=== PATIENT | female | born 1950 | race Caucasian/White ===

== ENCOUNTER 2018-07-16 12:14 | Outpatient (CLI) | payer MEDICARE ==
[2018-07-16 13:18] LABS: #Basophils 0.1 thou/uL (0.0-0.2); #Eosinphils 0.2 thou/uL (0.0-0.7); #Lymphocytes 3.8 thou/uL (1.20-3.40); #Monocytes 0.6 thou/uL (0.11-0.59); #Neutrophils 4.1 thou/uL (1.40-6.50); %Basophils 0.8 % (0.0-1.0); %Eosinophils 2.3 % (0.0-10.0); %Lymphocytes 43.5 % (21.0-51.0); %Monocytes 6.6 % (0.0-10.0); %Neutrophils 46.9 % (42.0-75.0); Hemoglobin 13.9 g/dL (12.0-16.0); Mean Corpuscular Hemoglobin 26.6 pg (27.0-31.0); Mean Corpuscular Volume 85.8 fL (78.0-98.0); Mean Platelet Volume 6.5 fL (7.4-10.4); Platelet Count 363 thou/uL (130-400); RBC Distribution Width 15.5 % (11.5-14.5); Red Blood Cell (RBC) Count 5.22 mill/uL (4.20-5.40); White Blood Cell (WBC) Count 8.7 thou/uL (4.8-10.8)
[2018-07-17 13:54] LABS: Ref Lab Test Ordered C TELOPEPTIDE TEST; Reference Lab Name LABCORP
== END 2018-07-16 12:15 | disposition home or self-care (01) ==
LOC: MADLAB 12:14
PROVIDERS: ATTEND Internal Medicine Rheumatology
DX: M80.00XD Age-related osteoporosis with current pathological fracture, unspecified site, subsequent encounter for fracture with routine healing (principal); M47.819 Spondylosis without myelopathy or radiculopathy, site unspecified
CPT/HCPCS: 82306; 83970; 85025; 85652

== ENCOUNTER 2019-02-26 20:00 | Emergency (ER) | payer MEDICARE ==
--- NOTE | 2019-02-26 20:28 | RAD ---
FXR Hip Rt 2-3 View: 02/26/2019 8:07 PM CLINICAL INDICATION: Posttraumatic pain COMPARISON: None. FINDINGS: Fracture:Mildly displaced subcapital proximal right femoral fracture is present. The femoral head rem ains seated within the acetabulum Arthropathy:Moderate arthropathy. Incidental findings:Prominent retained fecal material in the colon IMPRESSION: 1. Acute subcapital proximal right femoral fracture. Orthopedic consultation is warranted.
[2019-02-26] MEDS ORDERED: Sodium Chloride 0.9% 500 ML ONE (21:00)
[2019-02-26] MEDS ORDERED: Morphine 4 MG/ML VIAL ONE (21:00)
[2019-02-26 21:29] LABS: #Basophils 0.1 thou/uL (0.0-0.2); #Lymphocytes 1.8 thou/uL (1.20-3.40); #Monocytes 0.5 thou/uL (0.11-0.59); %Basophils 0.6 % (0.0-1.0); %Eosinophils 0.4 % (0.0-10.0); %Lymphocytes 15.6 % (21.0-51.0); %Monocytes 4.4 % (0.0-10.0); %Neutrophils 79.1 % (42.0-75.0); Mean Corpuscular HGB CONC 32.6 g/dL (32.0-36.0); Mean Corpuscular Hemoglobin 30.5 pg (27.0-31.0); Mean Corpuscular Volume 93.4 fL (78.0-98.0); Mean Platelet Volume 7.8 fL (7.4-10.4); Platelet Count 214 thou/uL (130-400); RBC Distribution Width 14.9 % (11.5-14.5); Red Blood Cell (RBC) Count 4.58 mill/uL (4.20-5.40); White Blood Cell (WBC) Count 11.3 thou/uL (4.8-10.8)
== END 2019-02-26 21:19 | disposition short-term general hospital (02) ==
LOC: MADERS 20:00
DX: S72.011A Unspecified intracapsular fracture of right femur, initial encounter for closed fracture (principal); E03.9 Hypothyroidism, unspecified; K21.9 Gastro-esophageal reflux disease without esophagitis; E78.5 Hyperlipidemia, unspecified; I10 Essential (primary) hypertension; M81.0 Age-related osteoporosis without current pathological fracture; F32.9 Major depressive disorder, single episode, unspecified; F17.210 Nicotine dependence, cigarettes, uncomplicated; Z79.899 Other long term (current) drug therapy; Z79.82 Long term (current) use of aspirin; W19.XXXA Unspecified fall, initial encounter
CPT/HCPCS: 85025; 96374; J2270; J7050

== ENCOUNTER 2019-03-02 11:14 | Inpatient (IN) | payer MEDICARE ==
[2019-03-02 12:37] VITALS: BMI 17.6
[2019-03-02] MEDS ORDERED: Acetaminophen 325 MG TAB PO PRN (13:43)
[2019-03-02] MEDS ORDERED: Ondansetron ODT 4 MG TAB PO PRN (13:45)
[2019-03-02] MEDS ORDERED: CLOBETASOL PROPIONATE TOP PRN (14:45)
[2019-03-02] MEDS: Gabapentin 300 MG CAP PO SCH ×2 (15:05→20:50)
[2019-03-02] MEDS: HYDROcodone/Acetaminophen 7.5/325 mg Tablet PO PRN (20:48)
[2019-03-02] MEDS: Amitriptyline HCl 25 MG TAB PO SCH (20:49)
[2019-03-02] MEDS: Aspirin 81 mg Enteric Coated Tablet PO SCH (20:49)
[2019-03-02] MEDS: guaiFENesin ER 600 MG TAB PO SCH (20:49)
[2019-03-02] MEDS: Colchicine 0.6 MG TAB PO SCH (20:50)
[2019-03-02] MEDS: Atorvastatin Calcium 10 MG TAB PO SCH (20:50)
[2019-03-02] MEDS: CHOLECALCIFEROL PO SCH (20:51)
[2019-03-02] MEDS: Teriparatide [Forteo] 20 MCG SC SCH (20:51)
[2019-03-03] MEDS: Levothyroxine Sodium 50 MCG TAB PO SCH (05:16)
[2019-03-03 05:29] LABS: #Neutrophils 3.1 thou/uL (1.40-6.50); %Eosinophils 1.2 % (0.0-10.0); %Lymphocytes 33.3 % (21.0-51.0); %Monocytes 6.6 % (0.0-10.0); Hemoglobin 9.8 g/dL (12.0-16.0); Mean Corpuscular HGB CONC 33.6 g/dL (32.0-36.0); Mean Corpuscular Hemoglobin 30.7 pg (27.0-31.0); Mean Corpuscular Volume 91.3 fL (78.0-98.0); Mean Platelet Volume 7.4 fL (7.4-10.4); Platelet Count 166 thou/uL (130-400); RBC Distribution Width 14.9 % (11.5-14.5); White Blood Cell (WBC) Count 5.4 thou/uL (4.8-10.8)
[2019-03-03 05:30] LABS: #Basophils 0.1 thou/uL (0.0-0.2); #Eosinphils 0.1 thou/uL (0.0-0.7); #Lymphocytes 1.8 thou/uL (1.20-3.40); #Monocytes 0.4 thou/uL (0.11-0.59)
[2019-03-03 05:33] LABS: ALT (SGPT) 25 U/L (8-55); AST (SGOT) 14 U/L (5-34); Albumin 2.9 g/dL (3.4-4.8); Alkaline Phosphatase 115 U/L (40-150); Anion Gap 14 mmol/L (10-20); BUN (Urea Nitrogen) 9 mg/dL (9.8-20.1); Bilirubin, Total 0.5 mg/dL (0.2-1.2); Calc. Creatinine Clearance 73 mL/min (70-130); Calcium 8.3 mg/dL (7.8-10.44); Carbon Dioxide 30 mmol/L (23-31); Chloride 100 mmol/L (98-107); Estimated GFR-MDRD Greater than 90; Glucose 108 mg/dL (80-115); Platelet Morphology Comment Appears Adequate; Potassium 3.9 mmol/L (3.5-5.1); Protein, Total 4.9 g/dL (6.0-8.3); RBC Morphology Normal; Sodium 140 mmol/L (136-145)
[2019-03-03] MEDS: Calcium Carbonate 500 MG ChewTAB PO PRN ×3 (06:26→19:14)
--- NOTE | 2019-03-03 07:35 | HP ---
CHIEF COMPLAINT: Weakness. HISTORY OF PRESENT ILLNESS: The patient is a very pleasant 68-year-old female, who was living with her good friend and her . She was independent of all her ADLs. She has a history of COPD, cigarette abuse, and osteoporosis with a history of multiple thoracolumbar compression fractures. The patient also has hypertension. The patient had a fall on 02/27/2019. She said she was leaning over to get something out of her purse and fell over onto her right hip. She had immediate pain and could not get up. She was taken to the emergency room and was found to have a right femoral neck fracture that was closed. She was taken to [facility] and hospitalized and there underwent a right hip arthoplasty on 02/27/2029 by orthopedic surgeon, Dr. Bharathi Weiss. The patient postop course has been unremarkable other than she has had a drop in her hemoglobin from an admission hemoglobin of 14.5 to 9.8 and then this rebounded to 10.6, this was from the fracture and surgery. She has had no signs of any acute blood loss other than from that fracture. She has done very well postop and has been managing her pain with hydrocodone, which works very well for her. She has been up walking with a walker and still needed assistance with transfers and ADLs. She was transferred to [facility] to [facility] for purpose of physical therapy and occupational therapy in an effort to improve her functional capabilities. The patient was seen soon after her arrival and she was able to give me a good history of what has happened to her and her past historical events. Right now, she is feeling good. She said she has chronic back pain from multiple compression fractures and at home manages this with hydrocodone/acetaminophen 7.5/325 mg one or two a day. She said this has also helped manage her hip. PAST MEDICAL HISTORY: COPD; osteoporosis; history of compression fractures of T11-T12, L3, L4, and L5. She has osteoporosis and the patient is under the care of a shipping and receiving and manages this with Forteo that she takes nightly and vitamin D3. She has hypertension and insomnia, for which she has been on amitriptyline for a long time. Hypothyroidism and chronic diarrhea, for which she is on a medication that has managed this very well, it was recently given to her by the folding machine feeder. She was hospitalized on September 26, 2018, for acute colitis and was seen by folding machine feeder, Dr. Daniels, who follows up with her as an outpatient. On 06/28/2018, she had an echocardiogram that showed a 50% to 55% ejection fraction, moderate aortic insufficiency, and diastolic dysfunction. Carotid duplex scan showed mild plaquing with no significant stenosis. The patient has a long history of smoking, but has been trying to stop. Lichen planus. PAST SURGICAL HISTORY: Right total hip arthroplasty on 02/27/2019, cholecystectomy in 1977, and EVY in 1981. MEDICATIONS: Present medicines; 1. Lisinopril 5 mg daily. 2. Omeprazole 40 mg daily. 3. Pravastatin 40 mg daily. 4. Gabapentin 300 mg one t.i.d. 5. Amitriptyline 50 mg at bedtime. 6. Aspirin 81 mg daily. 7. Colcrys (colchicine) 0.6 mg one b.i.d. 8. Levothyroxine 50 mcg daily. 9. Hydrocodone/acetaminophen 7.5/325 one twice a day as needed. 10. Vitamin D3 drops four drops at night. 11. Diclofenac gel 1% as needed. 12. Forteo 20 mg subcu daily. 13. Clobetasol propionate 0.05% applied to the skin as needed. 14. Zofran oral disintegrating tablets 4 mg sublingual p.r.n. ALLERGIES: SULFA DRUGS AND PENICILLIN. REVIEW OF SYSTEMS: GENERAL: The patient says she has not had any fever. She has had no recent weight gain or loss. HEAD AND NECK: No complaints. PULMONARY: No shortness of breath. CARDIOVASCULAR: No chest pain. GI: The patient has a history of diarrhea that recently has stopped after she saw a folding machine feeder and started on a medication for this. : No complaints. ADLS: Prior to her fall, she was independent of all her ADLs. HABITS: The patient was smoking about a pack of cigarettes a day for many years. She has been cutting down, and since this hospitalization, she has not been smoking. Alcohol, none. CODE STATUS: In her record, it shows she is a DNR. PHYSICAL EXAMINATION: GENERAL: Very pleasant 68-year-old asthenic-build female, who is sitting up in a chair. She is talkative and appears very comfortable and in no distress. VITAL SIGNS: Her vital signs shows a temperature 98.6, pulse 104, respirations 16, O2 saturation 94% on room air, blood pressure 114/71, and weight 106. HEENT: Head, normocephalic and atraumatic. Eyes; pupils are equal, round, and reactive. Sclerae nonicteric. Ears, TMs are clear. Nose normal. Mouth and throat, normal. Neck, carotids are equal and strong. No bruits. LUNGS: Clear. HEART: Regular rate. No murmurs. ABDOMEN: Soft and nontender. EXTREMITIES: Right hip, the incision along the lateral right hip has been closed with sonny and there is no drainage from this and no redness. Lower extremities, no edema. NEUROLOGIC: The patient is alert and oriented x3 with some generalized weakness, but nonfocal except some increase on the right leg secondary to fracture and surgery. SKIN: No rash. There is abrasion over the right knee that occurred with her fall on 02/27/2019. IMPRESSION: 1. Generalized weakness and gait abnormality. a. Secondary to a fall and fracture of her right hip. 2. Right femoral neck fracture, closed. a. Occurred from a fall when she got overbalanced on 02/27/2019. b. Status post right hip arthroplasty on 02/27/[address] Weiss. c. Doing very well on her third postop day. 3. Chronic obstructive pulmonary disease. 4. Hypertension. 5. Osteoporosis. a. History of compression fractures of T11-12 and L3, L4, and L5. b. On vitamin D3 and Forteo. c. Under the care of shipping and receiving, Dr. Garland. 6. Cigarette abuse. a. She has been off cigarettes since her hospitalization on 02/27. 7. Hypothyroidism. 8. Diarrhea, controlled. 9. Lichen planus, controlled. 10. Gastroesophageal reflux disease. PLAN: The patient has been admitted to [facility] for purpose of physical therapy and occupational therapy. This will be in an effort to improve and stabilize her gait and allow her to resume independence of her ADL. We will continue her routine medication. Job ID: [id number]
[2019-03-03] MEDS: guaiFENesin ER 600 MG TAB PO SCH ×2 (08:30→20:31)
[2019-03-03] MEDS: Aspirin 81 mg Enteric Coated Tablet PO SCH ×2 (08:30→20:30)
[2019-03-03] MEDS: Gabapentin 300 MG CAP PO SCH ×3 (08:30→20:30)
[2019-03-03] MEDS: Colchicine 0.6 MG TAB PO SCH ×2 (08:30→20:30)
[2019-03-03] MEDS: Lisinopril 5 MG TAB PO SCH (08:30)
[2019-03-03] MEDS: Nicotine 21 MG PATCH TD SCH (08:31)
[2019-03-03] MEDS: HYDROcodone/Acetaminophen 7.5/325 mg Tablet PO PRN ×2 (10:27→21:31)
[2019-03-03] MEDS: Atorvastatin Calcium 10 MG TAB PO SCH (20:31)
[2019-03-03] MEDS: Amitriptyline HCl 25 MG TAB PO SCH (20:31)
[2019-03-03] MEDS: DICYCLOMINE PO SCH (20:32)
[2019-03-03] MEDS: Teriparatide [Forteo] 20 MCG SC SCH (20:33)
[2019-03-03] MEDS: OMEPRAZOLE PO SCH (20:34)
[2019-03-03] MEDS: CHOLECALCIFEROL PO SCH (20:34)
[2019-03-04] MEDS: Levothyroxine Sodium 50 MCG TAB PO SCH (05:45)
--- NOTE | 2019-03-04 08:11 | PRG ---
DATE OF SERVICE: 03/03/2019 SUBJECTIVE: The patient said she had some trouble with some indigestion last night, but it was relieved with some Mylanta. At home, she takes omeprazole 40 mg, she is getting this from home and will take this. She also takes for her diarrhea that has worked wonderful. Bentyl 10 mg is prescribed 4 times a day, but she says twice today works wonderful and controls the diarrhea. If she takes it anymore often, then she gets constipated. OBJECTIVE: GENERAL: The patient is alert, looks very comfortable, in no distress. VITAL SIGNS: Her vital signs show a temperature 97.5, pulse 89, respirations 16 , O2 saturation 99% on room air, and blood pressure 138/71. LUNGS: Clear. HEART: Regular rate. LOWER EXTREMITIES: No edema. Incision is healing well. LABORATORY DATA: H and H 9 and 29.2 and white cell count 5400 with 58% segs, 33 % lymphocytes, and platelet count of 166,000. Sodium 140, potassium 3.9, BUN 9, creatinine 0.5, GFR greater than 90, and albumin 2.9. ASSESSMENT: 1. Generalized weakness and gait abnormality. a. Secondary to a fall and fracture of her right hip. b. Improved as of 03/03/2019. 2. Right femoral neck fracture, closed. a. Occurred from a fall when she got overbalanced on 02/27/2019. b. Status post right hip arthroplasty on 02/27/[address] Weiss. c. Improved on her fourth postop day as of 03/03/2019. Doing very well on her third postop day. 3. Chronic obstructive pulmonary disease. 4. Hypertension. 5. Osteoporosis. a. History of compression fractures of T11-12 and L3, L4, and L5. b. On vitamin D3 and Forteo. c. Under the care of line out worker, Dr. Garland. 6. Cigarette abuse. a. She has been off cigarettes since her hospitalization on 02/27. 7. Hypothyroidism. 8. Chronic diarrhea. a. Controlled with Bentyl 10 mg b.i.d. 9. Lichen planus, controlled. 10. Gastroesophageal reflux disease. 11. Anemia secondary to right hip fracture and surgical repair. Admission hemoglobin 14.5 on 02/26 and dropped to 9.8 on 02/28/2019. b. Stable at 9.8 as of 03/03/2019. PLAN: The patient has been restarted on her omeprazole 40 mg that she takes at home that controls her reflux and she has Tums for p.r.n. use. Started back on her Bentyl for her diarrhea. Physical Therapy is working with her. Continue present care. Continue PT, OT. Job ID: [id number] MTDD
[2019-03-04] MEDS: Nicotine 21 MG PATCH TD SCH (08:30)
[2019-03-04] MEDS: Lisinopril 5 MG TAB PO SCH (08:30)
[2019-03-04] MEDS: Colchicine 0.6 MG TAB PO SCH ×2 (08:30→20:40)
[2019-03-04] MEDS: guaiFENesin ER 600 MG TAB PO SCH ×2 (08:30→20:39)
[2019-03-04] MEDS: Aspirin 81 mg Enteric Coated Tablet PO SCH ×2 (08:30→20:40)
[2019-03-04] MEDS: Gabapentin 300 MG CAP PO SCH ×3 (08:30→20:40)
[2019-03-04] MEDS: DICYCLOMINE PO SCH ×2 (08:40→20:38)
[2019-03-04] MEDS: OMEPRAZOLE PO SCH (08:41)
[2019-03-04] MEDS: HYDROcodone/Acetaminophen 7.5/325 mg Tablet PO PRN ×2 (08:50→20:37)
--- NOTE | 2019-03-04 10:06 | PRG ---
DATE OF SERVICE: 03/04/2019 SUBJECTIVE: The patient says she is doing well. She said that she was little more sore yesterday. She thinks she may have worked a little bit too much with therapy. She did sleep good. She said she had some indigestion during the day, but this is much better. At home, she takes her omeprazole in the morning, not at night. This will be switched. Overall, she thinks she is doing good. OBJECTIVE: GENERAL: The patient is sitting up on the side of the bed. She is alert. Appears very comfortable, in no distress. VITAL SIGNS: Her temperature is 97.7, pulse 84, respirations 16, O2 saturation 90% on room air, and blood pressure 132/73. LUNGS: Moderate breath sounds are clear. HEART: Regular rate. EXTREMITIES: No edema. ASSESSMENT: 1. Generalized weakness and gait abnormality. a. Secondary to a fall and fracture of her right hip. b. Improved as of 03/04/2019. 2. Right femoral neck fracture, closed. a. Occurred from a fall when she got overbalanced on 02/27/2019. b. Status post right hip arthroplasty on 02/27/[address] Weiss. c. Continued progress on her fifth postop day as of 03/04/2019. 3. Chronic obstructive pulmonary disease. 4. Hypertension. 5. Osteoporosis. a. History of compression fractures of T11-12 and L3, L4, and L5. b. On vitamin D3 and Forteo. c. Under the care of waiter/waitress club, Dr. Garland. 6. Cigarette abuse. a. She has been off cigarettes since her hospitalization on 02/27. 7. Hypothyroidism. 8. Chronic diarrhea. a. Controlled with Bentyl. 9. Lichen planus, controlled. 10. Gastroesophageal reflux disease. PLAN: Continue present care. We will switch the omeprazole 40 mg in the morning. May use some Tums as needed. Continue PT and OT. Job ID: [id number] [facility]
[2019-03-04] MEDS: CHOLECALCIFEROL PO SCH (20:39)
[2019-03-04] MEDS: Amitriptyline HCl 25 MG TAB PO SCH (20:40)
[2019-03-04] MEDS: Atorvastatin Calcium 10 MG TAB PO SCH (20:40)
[2019-03-04] MEDS: Teriparatide [Forteo] 20 MCG SC SCH (20:41)
[2019-03-04] MEDS: Calcium Carbonate 500 MG ChewTAB PO PRN (21:32)
[2019-03-05] MEDS: Levothyroxine Sodium 50 MCG TAB PO SCH (06:10)
[2019-03-05] MEDS: HYDROcodone/Acetaminophen 7.5/325 mg Tablet PO PRN ×2 (07:41→20:14)
[2019-03-05] MEDS: Aspirin 81 mg Enteric Coated Tablet PO SCH ×2 (08:33→20:54)
[2019-03-05] MEDS: Colchicine 0.6 MG TAB PO SCH ×2 (08:33→20:55)
[2019-03-05] MEDS: Lisinopril 5 MG TAB PO SCH (08:33)
[2019-03-05] MEDS: guaiFENesin ER 600 MG TAB PO SCH ×2 (08:33→20:55)
[2019-03-05] MEDS: Gabapentin 300 MG CAP PO SCH ×3 (08:33→20:55)
[2019-03-05] MEDS: OMEPRAZOLE PO SCH (08:35)
[2019-03-05] MEDS: DICYCLOMINE PO SCH ×2 (08:37→20:57)
[2019-03-05] MEDS: Nicotine 21 MG PATCH TD SCH (08:38)
--- NOTE | 2019-03-05 12:24 | PRG ---
DATE OF SERVICE: 03/05/2019 SUBJECTIVE: The patient says she is doing better. Her breathing is doing good. She is walking better. She says she still has soreness in the hip, but the pain is controlled. She had a couple of days of bad indigestion, but it is better. She is back on her usual medication of the omeprazole that she is taking in the morning and she has the Tums to use for fallback. She has walked outside on the [employer] area smoking a cigarette this morning. OBJECTIVE: GENERAL: The patient is sitting outside at the entry, looks very comfortable and smoking. She appears in no distress. VITAL SIGNS: Temperature of 98.4, pulse 94, blood pressure 103/62, respirations 18, and O2 saturation 93% on room air. LUNGS: Clear. HEART: Regular rate. EXTREMITIES: No edema. ASSESSMENT: 1. Generalized weakness and gait abnormality. a. Secondary to a fall and fracture of her right hip. b. Improved as of 03/05/2019. 2. Right femoral neck fracture, closed. a. Occurred from a fall when she got overbalanced on 02/27/2019. b. Status post right hip arthroplasty on 02/27/[address] Weiss. c. Excellent progress on her 6th postop day as of 03/05/2019. 3. Chronic obstructive pulmonary disease. 4. Hypertension. 5. Osteoporosis. a. History of compression fractures of T11-12 and L3, L4, and L5. b. On vitamin D3 and Forteo. c. Under the care of boathouse keeper, Dr. Garland. 6. Cigarette abuse. a. The patient was off her cigarettes for a few days, but has resumed smoking some as of 03/05/2019. 7. Hypothyroidism. 8. Chronic diarrhea. a. Controlled with Bentyl. 9. Lichen planus, controlled. 10. Gastroesophageal reflux disease. PLAN: Continue present care. Continue PT. Once the patient feels that she has adequate support at home and able to get around adequately, then we can let her go home. Job ID: [id number] MTDD
[2019-03-05] MEDS: Amitriptyline HCl 25 MG TAB PO SCH (20:54)
[2019-03-05] MEDS: Atorvastatin Calcium 10 MG TAB PO SCH (20:55)
[2019-03-05] MEDS: CHOLECALCIFEROL PO SCH (20:56)
[2019-03-05] MEDS: Teriparatide [Forteo] 20 MCG SC SCH (20:58)
[2019-03-06] MEDS: Levothyroxine Sodium 50 MCG TAB PO SCH (05:30)
[2019-03-06] MEDS: Nicotine 21 MG PATCH TD SCH (08:48)
[2019-03-06] MEDS: guaiFENesin ER 600 MG TAB PO SCH ×2 (08:48→20:31)
[2019-03-06] MEDS: Aspirin 81 mg Enteric Coated Tablet PO SCH ×2 (08:49→20:31)
[2019-03-06] MEDS: Lisinopril 5 MG TAB PO SCH (08:49)
[2019-03-06] MEDS: Colchicine 0.6 MG TAB PO SCH ×2 (08:49→20:31)
[2019-03-06] MEDS: Gabapentin 300 MG CAP PO SCH ×3 (08:49→20:31)
[2019-03-06] MEDS: OMEPRAZOLE PO SCH (08:50)
[2019-03-06] MEDS: DICYCLOMINE PO SCH ×2 (08:50→20:32)
[2019-03-06] MEDS: HYDROcodone/Acetaminophen 7.5/325 mg Tablet PO PRN ×2 (08:55→20:36)
[2019-03-06] MEDS: Amitriptyline HCl 25 MG TAB PO SCH (20:30)
[2019-03-06] MEDS: Atorvastatin Calcium 10 MG TAB PO SCH (20:31)
[2019-03-06] MEDS: CHOLECALCIFEROL PO SCH (20:31)
[2019-03-06] MEDS: Teriparatide [Forteo] 20 MCG SC SCH (20:32)
[2019-03-07] MEDS: Calcium Carbonate 500 MG ChewTAB PO PRN ×3 (01:11→17:32)
[2019-03-07] MEDS: Levothyroxine Sodium 50 MCG TAB PO SCH (05:25)
[2019-03-07] MEDS: guaiFENesin ER 600 MG TAB PO SCH ×2 (08:27→20:44)
[2019-03-07] MEDS: Aspirin 81 mg Enteric Coated Tablet PO SCH ×2 (08:27→20:43)
[2019-03-07] MEDS: Colchicine 0.6 MG TAB PO SCH ×2 (08:27→20:43)
[2019-03-07] MEDS: Nicotine 21 MG PATCH TD SCH (08:27)
[2019-03-07] MEDS: Gabapentin 300 MG CAP PO SCH ×3 (08:27→20:44)
[2019-03-07] MEDS: Lisinopril 5 MG TAB PO SCH (08:27)
[2019-03-07] MEDS: OMEPRAZOLE PO SCH (08:29)
[2019-03-07] MEDS: DICYCLOMINE PO SCH ×2 (08:30→20:45)
[2019-03-07] MEDS: HYDROcodone/Acetaminophen 7.5/325 mg Tablet PO PRN ×2 (08:36→17:33)
[2019-03-07] MEDS: CHOLECALCIFEROL PO SCH (20:41)
[2019-03-07] MEDS: Atorvastatin Calcium 10 MG TAB PO SCH (20:43)
[2019-03-07] MEDS: Amitriptyline HCl 25 MG TAB PO SCH (20:43)
[2019-03-07] MEDS: Teriparatide [Forteo] 20 MCG SC SCH (20:43)
[2019-03-08] MEDS: HYDROcodone/Acetaminophen 7.5/325 mg Tablet PO PRN ×4 (00:38→21:49)
[2019-03-08] MEDS: Calcium Carbonate 500 MG ChewTAB PO PRN ×2 (00:41→21:04)
[2019-03-08] MEDS: Levothyroxine Sodium 50 MCG TAB PO SCH (05:57)
--- NOTE | 2019-03-08 08:16 | PRG ---
DATE OF SERVICE: 03/06/2019 SUBJECTIVE: The patient thinks she is doing good. She is just more sore along that right hip today than what it was yesterday. She has been doing good with therapy. Her breathing has been doing good. OBJECTIVE: GENERAL: The patient is alert, appears in no distress. VITAL SIGNS: Show a temperature of 97.6, pulse 77, respirations 16, O2 saturation 97% on room air, blood pressure 103/62. LUNGS: Clear. HEART: Regular rate. EXTREMITIES: Lower extremities, no edema. Right hip, the incision is healing well. The sonny are present. There is no drainage. No redness. ASSESSMENT: 1. Generalized weakness and gait abnormality. a. Secondary to a fall and fracture of her right hip. b. Improved as of 03/06/2019. 2. Right femoral neck fracture, closed. a. Occurred from a fall when she got overbalanced on 02/27/2019. b. Status post right hip arthroplasty on 02/27/[address] Weiss. c. Continued improvement on her 7th postop day, but having a little more soreness in the right hip as of 03/06/2019. 3. Chronic obstructive pulmonary disease. 4. Hypertension. 5. Osteoporosis. a. History of compression fractures of T11-12 and L3, L4, and L5. b. On vitamin D3 and Forteo. c. Under the care of dye tank tender, Dr. Garland. 6. Cigarette abuse. a. The patient was off her cigarettes for a few days, but has resumed smoking some as of 03/05/2019. 7. Hypothyroidism. 8. Chronic diarrhea. a. Controlled with Bentyl. 9. Lichen planus, controlled. 10. Gastroesophageal reflux disease. PLAN: The patient is having just some of the expected soreness as she is increasing her activities in that right hip. The patient reassured. She seems comfortable. We will continue present care and PT. Sonny will come out 2 weeks postop, which will be on 03/13. Job ID: [id number] MTDD
[2019-03-08] MEDS: OMEPRAZOLE PO SCH (08:36)
[2019-03-08] MEDS: Lisinopril 5 MG TAB PO SCH (08:37)
[2019-03-08] MEDS: Gabapentin 300 MG CAP PO SCH ×3 (08:37→20:59)
[2019-03-08] MEDS: guaiFENesin ER 600 MG TAB PO SCH ×2 (08:37→21:00)
[2019-03-08] MEDS: Colchicine 0.6 MG TAB PO SCH ×2 (08:38→20:59)
[2019-03-08] MEDS: Aspirin 81 mg Enteric Coated Tablet PO SCH ×2 (08:38→20:59)
[2019-03-08] MEDS: DICYCLOMINE PO SCH ×2 (08:38→21:00)
[2019-03-08] MEDS: Nicotine 21 MG PATCH TD SCH (08:38)
[2019-03-08] MEDS: Amitriptyline HCl 25 MG TAB PO SCH (20:59)
[2019-03-08] MEDS: Atorvastatin Calcium 10 MG TAB PO SCH (20:59)
[2019-03-08] MEDS: CHOLECALCIFEROL PO SCH (21:00)
[2019-03-08] MEDS: Teriparatide [Forteo] 20 MCG SC SCH (21:01)
[2019-03-09] MEDS: Levothyroxine Sodium 50 MCG TAB PO SCH (05:30)
[2019-03-09] MEDS: Nicotine 21 MG PATCH TD SCH (08:32)
[2019-03-09] MEDS: HYDROcodone/Acetaminophen 7.5/325 mg Tablet PO PRN ×3 (08:33→21:28)
[2019-03-09] MEDS: Lisinopril 5 MG TAB PO SCH (08:34)
[2019-03-09] MEDS: Gabapentin 300 MG CAP PO SCH ×3 (08:34→21:26)
[2019-03-09] MEDS: Colchicine 0.6 MG TAB PO SCH ×2 (08:34→21:26)
[2019-03-09] MEDS: guaiFENesin ER 600 MG TAB PO SCH ×2 (08:34→21:27)
[2019-03-09] MEDS: Aspirin 81 mg Enteric Coated Tablet PO SCH ×2 (08:34→21:26)
[2019-03-09] MEDS: OMEPRAZOLE PO SCH (08:35)
[2019-03-09] MEDS: DICYCLOMINE PO SCH ×2 (08:36→21:27)
--- NOTE | 2019-03-09 09:42 | PRG ---
DATE OF SERVICE: 03/09/2019 SUBJECTIVE: The patient says she is doing good other than she still has some soreness and achiness in that right hip. Her breathing is doing good. OBJECTIVE: GENERAL: The patient is sitting on the side of her bed. She is alert , talkative, appears comfortable, and in no distress. VITAL SIGNS: Her temperature is 97.9, pulse 88, respirations 20, O2 saturation 90% on room air, blood pressure 112/86. LUNGS: Clear. HEART: Regular rate. EXTREMITIES: No edema. Her right hip, the incision is healing well. Sutures were in place. There is no drainage nor redness. ASSESSMENT: 1. Generalized weakness and gait abnormality. a. Secondary to a fall and fracture of her right hip. b. Improved as of 03/09/2019. 2. Right femoral neck fracture, closed. a. Occurred from a fall when she got overbalanced on 02/27/2019. b. Status post right hip arthroplasty on 02/27/[address] Weiss. c. Continued improvement, but having some soreness still in the right hip and right upper leg as expected at this period in her postoperative course as of 03/09/2019. 3. Chronic obstructive pulmonary disease. 4. Hypertension. 5. Osteoporosis. a. History of compression fractures of T11-12 and L3, L4, and L5. b. On vitamin D3 and Forteo. c. Under the care of demonstrator sales, Dr. Garland. 6. Cigarette abuse. a. The patient was off her cigarettes for a few days, but has resumed smoking some as of 03/05/2019. 7. Hypothyroidism. 8. Chronic diarrhea. a. Controlled with Bentyl. 9. Lichen planus, controlled. 10. Gastroesophageal reflux disease. PLAN: Continue present care. The patient is due to see her orthopedic surgeon, Dr. Weiss 2 weeks postoperative. We will help make these arrangements. Job ID: [id number]
[2019-03-09] MEDS: Atorvastatin Calcium 10 MG TAB PO SCH (21:26)
[2019-03-09] MEDS: Amitriptyline HCl 25 MG TAB PO SCH (21:26)
[2019-03-09] MEDS: Teriparatide [Forteo] 20 MCG SC SCH (21:27)
[2019-03-09] MEDS: CHOLECALCIFEROL PO SCH (21:27)
[2019-03-09] MEDS: Calcium Carbonate 500 MG ChewTAB PO PRN (21:31)
[2019-03-10] MEDS: Levothyroxine Sodium 50 MCG TAB PO SCH (05:23)
[2019-03-10] MEDS: Colchicine 0.6 MG TAB PO SCH ×2 (08:00→20:16)
[2019-03-10] MEDS: Aspirin 81 mg Enteric Coated Tablet PO SCH ×2 (08:01→20:16)
[2019-03-10] MEDS: Lisinopril 5 MG TAB PO SCH (08:01)
[2019-03-10] MEDS: guaiFENesin ER 600 MG TAB PO SCH ×2 (08:02→20:16)
[2019-03-10] MEDS: OMEPRAZOLE PO SCH (08:02)
[2019-03-10] MEDS: Gabapentin 300 MG CAP PO SCH ×3 (08:02→20:16)
[2019-03-10] MEDS: DICYCLOMINE PO SCH ×2 (08:03→20:19)
[2019-03-10] MEDS: HYDROcodone/Acetaminophen 7.5/325 mg Tablet PO PRN ×3 (08:06→21:35)
--- NOTE | 2019-03-10 11:29 | PRG ---
DATE OF SERVICE: 03/10/2019 SUBJECTIVE: The patient says she is feeling a lot better. Her pain seemed to be well controlled. She is doing better with her therapy. She is due to see her orthopedic surgeon tomorrow afternoon, that is Dr. Weiss. She has excellent help at home and would like to be discharged in the morning, will leave here to go to the orthopedic surgeon's office and then home. She thinks she will be fine at home with good support. She is ambulating well and transferring independently. OBJECTIVE: GENERAL: The patient is alert, appears very comfortable, in no distress. VITAL SIGNS: Her temperature is 97, pulse 93, blood pressure 111/59, O2 saturation 91% on room air. LUNGS: Clear. HEART: Regular rate. EXTREMITIES: Lower extremities, no edema. ASSESSMENT: 1. Generalized weakness and gait abnormality. a. Secondary to a fall and fracture of her right hip. b. Improved. Walking further and transferring independently as of 2018. 2. Right femoral neck fracture, closed. a. Occurred from a fall when she got overbalanced on 02/27/2019. b. Status post right hip arthroplasty on 02/27/[address] Weiss. c. Continued improvement with good control of her pain as of 03/10/2019. 3. Chronic obstructive pulmonary disease. 4. Hypertension. 5. Osteoporosis. a. History of compression fractures of T11-12 and L3, L4, and L5. b. On vitamin D3 and Forteo. c. Under the care of latex foam worker, Dr. Garland. 6. Cigarette abuse. a. The patient was off her cigarettes for a few days, but has resumed smoking some as of 03/05/2019. 7. Hypothyroidism. 8. Chronic diarrhea. a. Controlled with Bentyl. 9. Lichen planus, controlled. 10. Gastroesophageal reflux disease. PLAN: Continue PT and OT. Continue present medicines. Plan to discharge tomorrow. She will leave from the hospital to go to [place], see orthopedic surgeon, then home. Job ID: [id number] MTDD
[2019-03-10] MEDS: Calcium Carbonate 500 MG ChewTAB PO PRN (17:04)
[2019-03-10] MEDS: Atorvastatin Calcium 10 MG TAB PO SCH (20:16)
[2019-03-10] MEDS: Amitriptyline HCl 25 MG TAB PO SCH (20:16)
[2019-03-10] MEDS: Teriparatide [Forteo] 20 MCG SC SCH (20:17)
[2019-03-10] MEDS: CHOLECALCIFEROL PO SCH (20:17)
[2019-03-11] MEDS: Levothyroxine Sodium 50 MCG TAB PO SCH (05:43)
[2019-03-11] MEDS: HYDROcodone/Acetaminophen 7.5/325 mg Tablet PO PRN ×2 (05:46→12:34)
[2019-03-11 06:52] VITALS: TEMP 97.3
[2019-03-11] MEDS: Aspirin 81 mg Enteric Coated Tablet PO SCH (08:06)
[2019-03-11] MEDS: Colchicine 0.6 MG TAB PO SCH (08:06)
[2019-03-11] MEDS: Lisinopril 5 MG TAB PO SCH (08:07)
[2019-03-11] MEDS: guaiFENesin ER 600 MG TAB PO SCH (08:07)
[2019-03-11] MEDS: OMEPRAZOLE PO SCH (08:07)
[2019-03-11] MEDS: Gabapentin 300 MG CAP PO SCH (08:07)
[2019-03-11] MEDS: DICYCLOMINE PO SCH (08:08)
[2019-03-11 08:09] VITALS: BP 100/60
--- NOTE | 2019-03-11 09:24 | DIS ---
DATE OF ADMISSION: 03/02/2019 DATE OF DISCHARGE: 03/11/2019 Admitted to [facility] on 03/02/2019 and discharged on 03/11/2019. DISCHARGE DIAGNOSES: 1. Generalized weakness and gait abnormality. a. Secondary to a fall and fracture of her right hip. b. Improved. Walking further and transferring independently as of 2018. 2. Right femoral neck fracture, closed. a. Occurred from a fall when she got overbalanced on 02/27/2019. b. Status post right hip arthroplasty on 02/27/[address] Weiss. c. Continued improvement with good control of her pain as of 03/11/2019. 3. Chronic obstructive pulmonary disease. 4. Hypertension. a. Too tighly controlled. Lisinopril discontinued. 5. Osteoporosis. a. History of compression fractures of T11-12 and L3, L4, and L5. b. On vitamin D3 and Forteo. c. Under the care of senior buyer, Dr. Garland. 6. Cigarette abuse. a. The patient was off her cigarettes for a few days, but has resumed smoking some as of 03/05/2019. 7. Hypothyroidism. 8. Chronic diarrhea. a. Controlled with Bentyl. 9. Lichen planus, controlled. 10. Gastroesophageal reflux disease. REASON FOR ADMISSION: The patient is a 68-year-old white female, who has a history of COPD, continued cigarette abuse, hypertension, osteoporosis, complicated by history of compression fractures of T11-T12 and L3, L4, and L5. She has chronic diarrhea which has been controlled with Bentyl, hypothyroidism, lichen planus, and GERD. The patient had a fall on 02/27/2019. The patient was leaning over to pick some up and got overbalance and fell onto her right hip. The patient sustained a right femoral neck fracture. She was hospitalized at [facility], and on 02/27/2019, underwent a right hip hemiarthroplasty by Orthopedic surgeon Dr. Bharathi Weiss. Her postoperative course was uncomplicated. The patient was left with a gait abnormality and weakness and deconditioning. She was transferred to [facility] for purpose of physical therapy, occupational therapy in an effort to try to improve her general strengths and functional capabilities. HOSPITAL COURSE: During the hospitalization, the patient made excellent progress with her physical therapy, and by the time of her discharge, she was walking 7 to 800 feet with a rolling walker and supervision and was transferring with supervision. Her incision over her hip was healing well. She has sonny in the hip for closure of the incision. The patient is due to be checked by orthopedic surgeon, Dr. Weiss, on the afternoon of 03/11/2019, and anticipate the sonny will be removed. The patient continued on her routine medications. She was tried on a Nicoderm patch to try to assist her with smoking cessation, but just did not like this and stopped this. She was smoking far less than what she had been. She is using the DuoNeb's as needed. She has chronic diarrhea, which has been well controlled on the dicyclomine. She has osteoporosis that has been managed with Forteo subcu daily at bedtime and calcium supplementation. She has a lichen planus that is controlled with the clobetasol. Her blood pressure was too tightly controlled. She was receiving lisinopril 5 mg daily. Her pressures have been running in the 90 to 100 systolic and the diastolics in the 50s. The lisinopril 5 mg will be stopped, and this will be followed up by her primary physician. The patient's pain was well controlled with Tylenol and occasional hydrocodone-acetaminophen 7.5/325. Her lab on 03/03 showed an H and H of 9.8 and 29.2, white cell count 5400 with 58% segs, 33 % lymphocytes, and platelet count of 166. Sodium 140, potassium 3.9, BUN 9, creatinine 0.55, glucose 108, albumin 2.9. On 03/11/2019, the patient was doing excellent, was walking with her walker and very stable, was transferring independently. She will be returning home where she was living with her close friend who will be there to assist her or arrange for in-home physical therapy through her Home Health, and the patient will follow up today with her orthopedic surgeon, Dr. Weiss. DISPOSITION: Diet: Regular diet. Activities: Ambulate with the use of a walker. Encouraged her to stop smoking. We will arrange for home health with in-home physical therapy. MEDICATIONS: 1. Acetaminophen 325 mg two every 4 hours as needed. 2. Hydrocodone 7.5/325 one every 6 hours if needed for pain. 3. DuoNeb by nebulizer 4 times a day p.r.n. 4. Amitriptyline 50 mg at bedtime. 5. Aspirin 81 mg b.i.d. 6. Atorvastatin 10 mg at bedtime. 7. Tums 500 mg two every 4 hours p.r.n. 8. Vitamin D3 four drops at bedtime. 9. Clobetasol propionate 0.05% ointment applied to the skin daily as needed. 10. Colchicine 0.6 mg b.i.d. 11. Diclofenac 1% gel applied to arthritic joint b.i.d. p.r.n. 12. Dicyclomine 10 mg b.i.d. 13. Gabapentin 300 mg t.i.d. 14. Mucinex 600 mg every 12 hours. 15. Levothyroxine 50 mcg daily. 16. Lisinopril 5 mg daily, it was stopped due to too tightly controlled BP. 17. Omeprazole 20 mg daily. 18. Forteo 20 mcg subcu at bedtime. FOLLOWUP: The patient will need to be seen by home health with in-home physical therapy with additions. Follow up with orthopedic surgeon, Dr. Bharathi Weiss on 03/11/2019. The patient should be seen by her primary care, Dr. Mason in 2 weeks. CODE STATUS: DNR. Job ID: [id number] MTDD
[2019-03-11] MEDS: Calcium Carbonate 500 MG ChewTAB PO PRN (12:34)
== END 2019-03-11 12:50 | disposition home health service (06) | DRG 561 ==
LOC: MADMS 12:31
PROVIDERS: ADMIT Family Medicine; ATTEND Family Medicine
DX: S72.001D Fracture of unspecified part of neck of right femur, subsequent encounter for closed fracture with routine healing (principal); J44.9 Chronic obstructive pulmonary disease, unspecified; M81.0 Age-related osteoporosis without current pathological fracture; I10 Essential (primary) hypertension; G47.00 Insomnia, unspecified; Z66 Do not resuscitate; E03.9 Hypothyroidism, unspecified; F17.210 Nicotine dependence, cigarettes, uncomplicated; L43.9 Lichen planus, unspecified; K21.9 Gastro-esophageal reflux disease without esophagitis; D64.9 Anemia, unspecified; K52.9 Noninfective gastroenteritis and colitis, unspecified; Z96.641 Presence of right artificial hip joint; Z90.49 Acquired absence of other specified parts of digestive tract; Z90.710 Acquired absence of both cervix and uterus; Z79.82 Long term (current) use of aspirin; Z79.899 Other long term (current) drug therapy; Z88.2 Allergy status to sulfonamides; Z88.0 Allergy status to penicillin; Z71.6 Tobacco abuse counseling; W19.XXXD Unspecified fall, subsequent encounter
CPT/HCPCS: 80053; 85025; J7620

== ENCOUNTER 2020-02-01 15:58 | Emergency (ER) | payer MEDICARE ==
[2020-02-01 16:44] LABS: ALT (SGPT) 17 U/L (8-55); AST (SGOT) 21 U/L (5-34); Albumin 3.3 g/dL (3.4-4.8); Alkaline Phosphatase 134 U/L (40-110); Anion Gap 17 mmol/L (10-20); BUN (Urea Nitrogen) 10 mg/dL (9.8-20.1); Bilirubin, Total 0.4 mg/dL (0.2-1.2); Calc. Creatinine Clearance 0 mL/min (70-130); Calcium 8.5 mg/dL (7.8-10.44); Carbon Dioxide 33 mmol/L (23-31); Chloride 96 mmol/L (98-107); Estimated GFR-MDRD Greater than 90; Glucose 108 mg/dL (80-115); Potassium 3.9 mmol/L (3.5-5.1); Protein, Total 6.3 g/dL (6.0-8.3); Sodium 142 mmol/L (136-145)
[2020-02-01 16:48] LABS: Anisocytosis SLIGHT = 6-15 cells (100X) (0-5/hpf); Band 10 % (5-11); Eosinophils 1 % (0-10); Hemoglobin 12.6 g/dL (12.0-16.0); Hypochromia SLIGHT = 6-15 cells (100X) (0-5/hpf); Lymphocytes 23 % (21-51); MDiff Complete? YES; Mean Corpuscular HGB CONC 30.4 g/dL (32.0-36.0); Mean Corpuscular Hemoglobin 26.4 pg (27.0-31.0); Mean Platelet Volume 7.3 fL (7.4-10.4); Monocytes 4 % (0-10); Neutrophil 62 % (42-75); Platelet Count 380 thou/uL (130-400); Platelet Morphology Comment Appears Adequate; RBC Distribution Width 14.9 % (11.5-14.5); Red Blood Cell (RBC) Count 4.75 mill/uL (4.20-5.40); White Blood Cell (WBC) Count 15.5 thou/uL (4.8-10.8)
--- NOTE | 2020-02-01 16:59 | RAD ---
Exam: Chest one view HISTORY:Cough, congestion Comparison: 06/27/2018 FINDINGS: Cardiac silhouette: Normal Aorta: Unremarkable Pulmonary vessels: Normal Costophrenic angles: Clear LUNGS: Hyperinflation. Diffuse reticulonodular opacities which may represent a component of edema or infiltrate superimposed upon fibrosis. Pneumothorax: None Osseous abnormalities: None IMPRESSION: 1. Hyperinflation. 2. Presumed edema or infiltrate superimposed upon fibrotic change.
[2020-02-01 17:10] LABS: CKMB 4.9 ng/mL (0-6.6)
[2020-02-01] MEDS ORDERED: Vancomycin HCl 750 MG VIAL ONE (17:29)
[2020-02-01] MEDS ORDERED: Sodium Chloride 0.9% 250 ML 250 ML ONE (17:29)
[2020-02-01] MEDS ORDERED: Sodium Chloride 0.9% 1,000 ML ONE (17:29)
== END 2020-02-01 17:52 | disposition short-term general hospital (02) ==
LOC: MADERS 15:58
DX: J11.00 Influenza due to unidentified influenza virus with unspecified type of pneumonia (principal); R09.02 Hypoxemia; K21.9 Gastro-esophageal reflux disease without esophagitis; E78.5 Hyperlipidemia, unspecified; E78.00 Pure hypercholesterolemia, unspecified; I10 Essential (primary) hypertension; M81.0 Age-related osteoporosis without current pathological fracture; F32.9 Major depressive disorder, single episode, unspecified; F17.210 Nicotine dependence, cigarettes, uncomplicated; E03.9 Hypothyroidism, unspecified; Z79.51 Long term (current) use of inhaled steroids; Z79.899 Other long term (current) drug therapy; Z79.1 Long term (current) use of non-steroidal anti-inflammatories (NSAID); Z79.82 Long term (current) use of aspirin
CPT/HCPCS: 71045; 80053; 82553; 83605; 83880; 84484; 85025; 87040; 87804; 93005; 96365; J3370; J7050; J7620

== ENCOUNTER 2021-10-13 02:07 | Emergency (ER) | payer MEDICARE ==
[2021-10-13] MEDS ORDERED: Ipratropium Bromide 2.5 ml Neb ONE (02:19)
[2021-10-13 02:45] LABS: #Basophils 0.1 thou/uL (0.0-0.2); #Lymphocytes 1.6 thou/uL (1.20-3.40); #Monocytes 0.9 thou/uL (0.11-0.59); #Neutrophils 11.3 thou/uL (1.40-6.50); %Basophils 0.6 % (0.0-1.0); %Eosinophils 0.2 % (0.0-10.0); %Lymphocytes 11.5 % (21.0-51.0); %Monocytes 6.8 % (0.0-10.0); Hemoglobin 12.3 g/dL (12.0-16.0); Mean Corpuscular HGB CONC 30.4 g/dL (32.0-36.0); Mean Corpuscular Hemoglobin 26.4 pg (27.0-31.0); Mean Platelet Volume 6.9 fL (7.4-10.4); Platelet Count 261 thou/uL (130-400); RBC Distribution Width 15.2 % (11.5-14.5); Red Blood Cell (RBC) Count 4.66 mill/uL (4.20-5.40); White Blood Cell (WBC) Count 13.9 thou/uL (4.8-10.8)
[2021-10-13 02:47] LABS: Bilirubin Negative (Negative); Blood, Urine Negative (Negative); Clarity Clear (Clear); Glucose, Urine (Dipstick) Negative (Negative); Ketone, Urine Negative (Negative); Leukocyte Negative (Negative); Nitrite Negative (Negative); Protein, Urine (Dipstick) Negative (Neg-Trace); Urobilinogen 0.2 mg/dL (Less than 2)
[2021-10-13 03:05] LABS: ALT (SGPT) 13 U/L (8-55); AST (SGOT) 14 U/L (5-34); Albumin 3.7 g/dL (3.4-4.8); Alkaline Phosphatase 100 U/L (40-110); Anion Gap 14 mmol/L (10-20); BUN (Urea Nitrogen) 9 mg/dL (9.8-20.1); Bilirubin, Total 0.5 mg/dL (0.2-1.2); CK (CPK) 75 U/L (29-168); Calc. Creatinine Clearance 0 mL/min (70-130); Calcium 8.1 mg/dL (7.8-10.44); Carbon Dioxide 28 mmol/L (23-31); Chloride 106 mmol/L (98-107); Globulin 2.7 g/dL (2.4-3.5); Glucose 134 mg/dL (83-110); Potassium 3.2 mmol/L (3.5-5.1); Protein, Total 6.4 g/dL (5.8-8.1); Sodium 145 mmol/L (136-145)
[2021-10-13] MEDS ORDERED: Sodium Chloride 0.9% 250 ML 250 ML ONE (05:24)
[2021-10-13 07:31] LABS: Base Excess-Venous 1.4 mmol/L (-2.0 to 3.0); Bicarbonate (HCO3v) 27.4 mmol/L (22.0-28.0); Calcium, Ionized 1.01 mmol/L (1.15-1.33); Chloride 107 mmol/L (98-107); Hemoglobin - Calc 13.1 g/dL (12.0-16.0); Potassium 3.4 mmol/L (3.5-5.1); Sodium 143 mmol/L (138-145); T. Carbon Dioxide 28.9 mmol/L (22.0-28.0); vO2 Saturation-calc 99.6 % (60.0-85.0)
[2021-10-13] MEDS ORDERED: Sodium Chloride 0.9% 100 ML BAG ONE (07:43)
[2021-10-13] MEDS ORDERED: Iopamidol 370 76% 125 ML VIAL FS ONE (13:14)
== END 2021-10-13 08:45 | disposition short-term general hospital (02) ==
LOC: MADERS 02:07
DX: J18.9 Pneumonia, unspecified organism (principal); J84.10 Pulmonary fibrosis, unspecified; R09.02 Hypoxemia; E03.9 Hypothyroidism, unspecified; K21.9 Gastro-esophageal reflux disease without esophagitis; E78.5 Hyperlipidemia, unspecified; F17.210 Nicotine dependence, cigarettes, uncomplicated
CPT/HCPCS: 36415; 71045; 71275; 80053; 81003; 82330; 82550; 82803; 83605; 83880; 84484; 85025; 87040; 93005; 94760; 96365; 96375; J1956; J3370; J3490; J7050; Q9967

== ENCOUNTER 2021-11-09 21:35 | Emergency (ER) | payer MEDICARE ==
[2021-11-09 22:34] LABS: #Basophils 0.1 thou/uL (0.0-0.2); #Lymphocytes 1.8 thou/uL (1.20-3.40); #Monocytes 0.7 thou/uL (0.11-0.59); #Neutrophils 10.5 thou/uL (1.40-6.50); %Basophils 0.5 % (0.0-1.0); %Eosinophils 0.3 % (0.0-10.0); %Lymphocytes 14.1 % (21.0-51.0); %Monocytes 5.1 % (0.0-10.0); %Neutrophils 80.1 % (42.0-75.0); Hemoglobin 11.9 g/dL (12.0-16.0); Mean Corpuscular HGB CONC 29.1 g/dL (32.0-36.0); Mean Corpuscular Hemoglobin 24.9 pg (27.0-31.0); Mean Corpuscular Volume 85.7 fL (78.0-98.0); Mean Platelet Volume 6.6 fL (7.4-10.4); Platelet Count 302 thou/uL (130-400); RBC Distribution Width 15.9 % (11.5-14.5); Red Blood Cell (RBC) Count 4.77 mill/uL (4.20-5.40); White Blood Cell (WBC) Count 13.1 thou/uL (4.8-10.8)
[2021-11-09 22:37] LABS: ALT (SGPT) 11 U/L (8-55); AST (SGOT) 10 U/L (5-34); Albumin 3.5 g/dL (3.4-4.8); Alkaline Phosphatase 79 U/L (40-110); Anion Gap 16 mmol/L (10-20); BUN (Urea Nitrogen) 10 mg/dL (9.8-20.1); Bilirubin, Total 0.5 mg/dL (0.2-1.2); Calc. Creatinine Clearance 0 mL/min (70-130); Calcium 9.6 mg/dL (7.8-10.44); Carbon Dioxide 27 mmol/L (23-31); Chloride 102 mmol/L (98-107); Globulin 2.4 g/dL (2.4-3.5); Glucose 145 mg/dL (83-110); Potassium 3.7 mmol/L (3.5-5.1); Protein, Total 5.9 g/dL (5.8-8.1); Sodium 141 mmol/L (136-145)
[2021-11-09 22:40] LABS: Anisocytosis SLIGHT = 6-15 cells (100X) (0-5/hpf); MDiff Complete? YES; Platelet Morphology Comment Appears Adequate
[2021-11-09] MEDS ORDERED: Levofloxacin 500 mg/D5W 100 ml Premix Bag ONE (23:29)
== END 2021-11-10 00:59 | disposition short-term general hospital (02) ==
LOC: MADERS 21:35
DX: J18.9 Pneumonia, unspecified organism (principal); I10 Essential (primary) hypertension; E03.9 Hypothyroidism, unspecified; K21.9 Gastro-esophageal reflux disease without esophagitis; E78.5 Hyperlipidemia, unspecified; E78.00 Pure hypercholesterolemia, unspecified; F17.210 Nicotine dependence, cigarettes, uncomplicated
CPT/HCPCS: 71045; 80053; 83605; 83880; 84484; 85025; 87040; 93005; 94760; 96365; 96375; J1956; J3370; J7620

== ENCOUNTER 2022-03-10 16:10 | Emergency (ER) | payer MEDICARE ==
[2022-03-10] MEDS ORDERED: predniSONE 20 MG TAB ONE (16:51)
[2022-03-10] MEDS ORDERED: Acyclovir 200 mg Capsule ONE (16:51)
== END 2022-03-10 17:02 | disposition home or self-care (01) ==
LOC: MADERS 16:10
DX: B02.9 Zoster without complications (principal); J44.9 Chronic obstructive pulmonary disease, unspecified; K21.9 Gastro-esophageal reflux disease without esophagitis; M10.9 Gout, unspecified; E03.9 Hypothyroidism, unspecified; E78.5 Hyperlipidemia, unspecified; E78.00 Pure hypercholesterolemia, unspecified; F17.210 Nicotine dependence, cigarettes, uncomplicated; Z79.890 Hormone replacement therapy; Z79.899 Other long term (current) drug therapy
CPT/HCPCS: 99282; J7512

== ENCOUNTER 2022-05-30 16:34 | Emergency (ER) | payer MEDICARE ==
[2022-05-30] MEDS ORDERED: Sodium Chloride 0.9% 2,000 ML ONE (17:15)
[2022-05-30 18:01] LABS: Bilirubin Negative (Negative); Blood, Urine Negative (Negative); Clarity Clear (Clear); Glucose, Urine (Dipstick) Negative (Negative); Ketone, Urine Trace mg/dL (Negative); Leukocyte Negative (Negative); Nitrite Negative (Negative); Protein, Urine (Dipstick) 100 mg/dL (Neg-Trace); Urobilinogen 0.2 mg/dL (Less than 2); pH, Urine 5.5 (5.0-9.0)
[2022-05-30 18:08] LABS: Bacteria/HPF None Seen HPF (None Seen); RBC/HPF None Seen HPF (0-3); Squamous Epithelial 0-3 HPF (0-3); WBC/HPF 0-3 HPF (0-3)
[2022-05-30 18:10] LABS: SARS-CoV-2 NAA Rapid Test DETECTED (NotDetected)
[2022-05-30 19:13] LABS: Hemoglobin 11.8 g/dL (12.0-16.0); Mean Corpuscular HGB CONC 29.6 g/dL (32.0-36.0); Mean Corpuscular Hemoglobin 23.3 pg (27.0-31.0); Mean Corpuscular Volume 78.8 fL (78.0-98.0); Mean Platelet Volume 8.4 fL (7.4-10.4); Platelet Count 165 thou/uL (130-400); Red Blood Cell (RBC) Count 5.07 mill/uL (4.20-5.40); White Blood Cell (WBC) Count 12.3 thou/uL (4.8-10.8)
[2022-05-30 19:23] LABS: ALT (SGPT) 12 U/L (8-55); AST (SGOT) 16 U/L (5-34); Albumin 2.8 g/dL (3.4-4.8); Alkaline Phosphatase 59 U/L (40-110); Anion Gap 13 mmol/L (10-20); BUN (Urea Nitrogen) 13 mg/dL (9.8-20.1); Bilirubin, Total 0.4 mg/dL (0.2-1.2); Calc. Creatinine Clearance 0 mL/min (70-130); Calcium 7.4 mg/dL (7.8-10.44); Carbon Dioxide 26 mmol/L (23-31); Chloride 105 mmol/L (98-107); Estimated GFR 95; Globulin 2.1 g/dL (2.4-3.5); Glucose 90 mg/dL (83-110); Potassium 4.1 mmol/L (3.5-5.1); Protein, Total 4.9 g/dL (5.8-8.1); Sodium 140 mmol/L (136-145)
[2022-05-30 19:29] LABS: #Basophils 0.1 thou/uL (0.0-0.2); #Lymphocytes 2.1 thou/uL (1.20-3.40); #Monocytes 0.7 thou/uL (0.11-0.59); #Neutrophils 9.5 thou/uL (1.40-6.50); %Basophils 0.5 % (0.0-1.0); %Lymphocytes 16.6 % (21.0-51.0); %Monocytes 5.7 % (0.0-10.0); %Neutrophils 77.2 % (42.0-75.0); MDiff Complete? YES; Microcytosis SLIGHT = 6-15 cells (100X) (0-5/hpf); Platelet Morphology Comment Appears Adequate
== END 2022-05-30 22:07 | disposition short-term general hospital (02) ==
LOC: MADERS 16:34
DX: U07.1 COVID-19 (principal); J44.9 Chronic obstructive pulmonary disease, unspecified; F17.210 Nicotine dependence, cigarettes, uncomplicated; K21.9 Gastro-esophageal reflux disease without esophagitis; I10 Essential (primary) hypertension; Z79.899 Other long term (current) drug therapy
CPT/HCPCS: 71046; 80053; 81003; 81015; 83605; 83880; 85025; 87040; 94640; 94760; 96360; 96361; J7050; J7620; U0002

== ENCOUNTER 2023-01-10 14:32 | Emergency (ER) | payer MEDICARE ==
[2023-01-10 16:05] LABS: ALT (SGPT) 8 U/L (8-55); AST (SGOT) 12 U/L (5-34); Albumin 3.3 g/dL (3.4-4.8); Alkaline Phosphatase 175 U/L (40-110); Anion Gap 15 mmol/L (10-20); BUN (Urea Nitrogen) 8 mg/dL (9.8-20.1); Bilirubin, Total 0.7 mg/dL (0.2-1.2); Calc. Creatinine Clearance 0 mL/min (70-130); Calcium 9.2 mg/dL (7.8-10.44); Carbon Dioxide 31 mmol/L (23-31); Chloride 96 mmol/L (98-107); Estimated GFR 94; Globulin 2.9 g/dL (2.4-3.5); Glucose 98 mg/dL (83-110); Lipase 11 U/L (8-78); Protein, Total 6.2 g/dL (5.8-8.1); Sodium 138 mmol/L (136-145)
[2023-01-10 16:14] LABS: #Basophils 0.1 thou/uL (0.0-0.2); #Lymphocytes 1.6 thou/uL (1.20-3.40); #Monocytes 0.7 thou/uL (0.11-0.59); #Neutrophils 10.1 thou/uL (1.40-6.50); %Basophils 0.5 % (0.0-1.0); %Eosinophils 0.2 % (0.0-10.0); %Lymphocytes 12.9 % (21.0-51.0); %Monocytes 5.3 % (0.0-10.0); %Neutrophils 81.1 % (42.0-75.0); Anisocytosis SLIGHT = 6-15 cells (100X) (0-5/hpf); Hemoglobin 14.8 g/dL (12.0-16.0); MDiff Complete? YES; Mean Corpuscular HGB CONC 30.9 g/dL (32.0-36.0); Mean Corpuscular Hemoglobin 26.8 pg (27.0-31.0); Mean Corpuscular Volume 86.8 fl (78.0-98.0); Mean Platelet Volume 7.5 fL (7.4-10.4); Platelet Count 347 10x3/uL (130-400); Platelet Morphology Comment Appears Adequate; RBC Distribution Width 21.2 % (11.5-14.5); Red Blood Cell (RBC) Count 5.54 mill/uL (4.20-5.40); Stomatocytes SLIGHT = 2-5 cells (100X) (0-1/hpf); White Blood Cell (WBC) Count 12.4 10x3/uL (4.8-10.8)
[2023-01-10] MEDS ORDERED: Mag-Al Plus 1200 MG/1200 MG/120 MG/30 ML UDCUP ONE (16:15)
[2023-01-10] MEDS ORDERED: Ondansetron ODT 4 MG TAB ONE (16:15)
[2023-01-10 16:21] LABS: CKMB 2.6 ng/mL (0-6.6)
[2023-01-10 17:43] LABS: Bilirubin Negative (Negative); Blood, Urine Negative (Negative); Clarity Clear (Clear); Glucose, Urine (Dipstick) Negative (Negative); Ketone, Urine Negative (Negative); Leukocyte Negative (Negative); Nitrite Negative (Negative); Protein, Urine (Dipstick) Negative (Neg-Trace); Specific Gravity, Urine 1.015 (1.005-1.030); Urobilinogen 0.2 mg/dL (Less than 2); pH, Urine 7.5 (5.0-9.0)
== END 2023-01-10 18:55 | disposition home or self-care (01) ==
LOC: MADERS 14:32
DX: K29.70 Gastritis, unspecified, without bleeding (principal); D72.829 Elevated white blood cell count, unspecified; J44.9 Chronic obstructive pulmonary disease, unspecified; E03.9 Hypothyroidism, unspecified; K21.9 Gastro-esophageal reflux disease without esophagitis; E78.00 Pure hypercholesterolemia, unspecified; I10 Essential (primary) hypertension; F17.210 Nicotine dependence, cigarettes, uncomplicated; Z79.899 Other long term (current) drug therapy
CPT/HCPCS: 36415; 80053; 81003; 82553; 83690; 83880; 84484; 85025; 93005; Q0162

== ENCOUNTER 2023-01-13 15:22 | Emergency (ER) | payer MEDICARE ==
[2023-01-13] MEDS ORDERED: HYDROcodone/Acetaminophen 10/325 mg Tablet ONE ×2 (16:12→22:34)
[2023-01-13] MEDS ORDERED: Dexamethasone 10 MG/ML VIAL ONE (16:12)
[2023-01-13] MEDS ORDERED: Ipratropium/Albuterol 3 ML NEB ONE ×2 (16:12→19:37)
[2023-01-13] MEDS ORDERED: methylPREDNISolone Sod Succ/PF 125 MG/2 ML VIAL ONE (16:12)
[2023-01-13 16:28] LABS: INR-International Normal Ratio 0.9; Prothrombin Time 12.8 sec (12.0-14.7)
[2023-01-13 16:29] LABS: PTT 34.4 sec (22.9-36.1)
[2023-01-13 16:30] LABS: ALT (SGPT) 14 U/L (8-55); AST (SGOT) 16 U/L (5-34); Albumin 2.8 g/dL (3.4-4.8); Alkaline Phosphatase 169 U/L (40-110); Anion Gap 17 mmol/L (10-20); BUN (Urea Nitrogen) 12 mg/dL (9.8-20.1); CK (CPK) 29 U/L (29-168); Calc. Creatinine Clearance 0 mL/min (70-130); Calcium 8.7 mg/dL (7.8-10.44); Carbon Dioxide 31 mmol/L (23-31); Chloride 96 mmol/L (98-107); Estimated GFR 91; Globulin 2.4 g/dL (2.4-3.5); Glucose 110 mg/dL (83-110); Lipase 7 U/L (8-78); Magnesium 1.7 mg/dL (1.6-2.6); Potassium 3.9 mmol/L (3.5-5.1); Protein, Total 5.2 g/dL (5.8-8.1); Sodium 140 mmol/L (136-145)
[2023-01-13 16:31] LABS: #Basophils 0.1 thou/uL (0.0-0.2); #Eosinphils 0.1 thou/uL (0.0-0.7); #Lymphocytes 1.9 thou/uL (1.20-3.40); #Monocytes 0.7 thou/uL (0.11-0.59); #Neutrophils 10.4 thou/uL (1.40-6.50); %Basophils 0.8 % (0.0-1.0); %Eosinophils 0.6 % (0.0-10.0); %Lymphocytes 14.1 % (21.0-51.0); %Monocytes 5.1 % (0.0-10.0); %Neutrophils 79.3 % (42.0-75.0); Anisocytosis SLIGHT = 6-15 cells (100X) (0-5/hpf); Hypochromia SLIGHT = 6-15 cells (100X) (0-5/hpf); MDiff Complete? YES; Mean Corpuscular HGB CONC 30.9 g/dL (32.0-36.0); Mean Corpuscular Volume 87.3 fl (78.0-98.0); Mean Platelet Volume 6.8 fL (7.4-10.4); Platelet Count 364 10x3/uL (130-400); Platelet Morphology Comment Appears Adequate; RBC Distribution Width 20.6 % (11.5-14.5); Red Blood Cell (RBC) Count 5.18 mill/uL (4.20-5.40); White Blood Cell (WBC) Count 13.2 10x3/uL (4.8-10.8)
[2023-01-13 16:54] LABS: SARS-CoV-2 NAA Rapid Test Not Detected (NotDetected)
[2023-01-13 16:57] LABS: D-Dimer Test 2.11 *mcg/mL (0.27-0.43)
[2023-01-13] MEDS ORDERED: Sodium Chloride 0.9% 1,000 ML ONE (17:04)
[2023-01-13 19:06] LABS: Lactic Acid 1.7 mmol/L (0.5-2.2)
[2023-01-13] MEDS ORDERED: Nicotine 14 MG PATCH TOP SCH (19:30)
[2023-01-14] MEDS ORDERED: Ipratropium/Albuterol 3 ML NEB ONE ×2 (00:38→03:52)
[2023-01-14] MEDS ORDERED: HYDROcodone/Acetaminophen 10/325 mg Tablet ONE (04:29)
== END 2023-01-14 06:22 | disposition short-term general hospital (02) ==
LOC: MADERS 15:22
DX: A41.9 Sepsis, unspecified organism (principal); J18.9 Pneumonia, unspecified organism; J44.1 Chronic obstructive pulmonary disease with (acute) exacerbation; R79.1 Abnormal coagulation profile; Z20.822 Contact with and (suspected) exposure to COVID-19; E03.9 Hypothyroidism, unspecified; K21.9 Gastro-esophageal reflux disease without esophagitis; E78.00 Pure hypercholesterolemia, unspecified; I10 Essential (primary) hypertension; F17.210 Nicotine dependence, cigarettes, uncomplicated; Z79.899 Other long term (current) drug therapy; Z79.82 Long term (current) use of aspirin
CPT/HCPCS: 36415; 71045; 80053; 82550; 82553; 83605; 83690; 83735; 83880; 84484; 85025; 85379; 85610; 85730; 87040; 93005; 96374; 96375; J1100; J1650; J1956; J2930; J7050; J7620

== ENCOUNTER 2023-01-29 17:22 | Inpatient (IN) | payer MEDICARE, OTHER ==
[2023-01-29] MEDS ORDERED: Benzonatate 100 MG CAP PO PRN (17:35)
[2023-01-29] MEDS ORDERED: HYDROcodone/Acetaminophen 7.5/325 mg Tablet PO PRN (17:35)
[2023-01-29] MEDS ORDERED: Ipratropium/Albuterol 3 ML NEB NEB PRN (17:37)
[2023-01-30] MEDS ORDERED: Heparin 5,000 UNITS/ML VIAL SC SCH (00:15)
[2023-01-30] MEDS ORDERED: Gabapentin 300 MG CAP PO SCH ×2 (00:15→09:00)
[2023-01-30] MEDS ORDERED: Atorvastatin Calcium 40 MG TAB PO SCH (00:30)
[2023-01-30] MEDS ORDERED: Amitriptyline HCl 25 MG TAB PO SCH (00:30)
[2023-01-30] MEDS ORDERED: Budesonide 0.5 MG/2 ML NEB NEB SCH (00:30)
[2023-01-30] MEDS: Meropenem 1 GM in Sodium Chloride 0.9% 100 ML IVPB SCH ×3 (01:09→18:05)
[2023-01-30] MEDS: Levothyroxine Sodium 50 MCG TAB PO SCH (06:07)
[2023-01-30 08:06] LABS: SARS-CoV-2 NAA Rapid Test Not Detected (NotDetected)
[2023-01-30] MEDS: Potassium Chloride 20 MEQ TAB PO SCH (08:25)
[2023-01-30] MEDS: Clotrimazole 1% Cream 15 GM TUBE TOP SCH ×2 (08:26→20:21)
[2023-01-30] MEDS: Budesonide 0.5 MG/2 ML NEB NEB SCH ×2 (08:26→20:19)
[2023-01-30] MEDS: Heparin 5,000 UNITS/ML VIAL SC SCH ×2 (08:26→20:20)
[2023-01-30] MEDS ORDERED: FLU VACC QS2022-23(65YR UP)/PF 240 MCG/0.7 ML SYRINGE IM ONE (09:00)
[2023-01-30] MEDS: Gabapentin 300 MG CAP PO SCH ×2 (16:07→20:18)
[2023-01-30] MEDS: HYDROcodone/Acetaminophen 5/325 mg Tablet PO PRN (20:16)
[2023-01-30] MEDS: Amitriptyline HCl 25 MG TAB PO SCH (20:18)
[2023-01-30] MEDS: Atorvastatin Calcium 40 MG TAB PO SCH (20:18)
[2023-01-31] MEDS: Meropenem 1 GM in Sodium Chloride 0.9% 100 ML IVPB SCH ×3 (01:27→18:28)
[2023-01-31 05:32] LABS: #Basophils 0.1 thou/uL (0.0-0.2); #Eosinphils 0.5 thou/uL (0.0-0.7); #Lymphocytes 2.3 thou/uL (1.20-3.40); #Monocytes 0.8 thou/uL (0.11-0.59); #Neutrophils 6.3 thou/uL (1.40-6.50); %Eosinophils 4.7 % (0.0-10.0); %Lymphocytes 22.9 % (21.0-51.0); %Monocytes 8.2 % (0.0-10.0); %Neutrophils 63.1 % (42.0-75.0); Hemoglobin 10.1 g/dL (12.0-16.0); Mean Corpuscular HGB CONC 32.8 g/dL (32.0-36.0); Mean Corpuscular Hemoglobin 28.4 pg (27.0-31.0); Mean Corpuscular Volume 86.4 fl (78.0-98.0); Mean Platelet Volume 7.4 fL (7.4-10.4); Platelet Count 354 10x3/uL (130-400); RBC Distribution Width 18.2 % (11.5-14.5); Red Blood Cell (RBC) Count 3.55 mill/uL (4.20-5.40)
[2023-01-31 05:46] LABS: Anion Gap 15 mmol/L (10-20); BUN (Urea Nitrogen) 9 mg/dL (9.8-20.1); Calc. Creatinine Clearance 76 mL/min (70-130); Calcium 8.6 mg/dL (7.8-10.44); Carbon Dioxide 31 mmol/L (23-31); Chloride 94 mmol/L (98-107); Estimated GFR 99; Glucose 95 mg/dL (83-110); Potassium 4.3 mmol/L (3.5-5.1); Sodium 136 mmol/L (136-145)
[2023-01-31] MEDS: Senokot S 8.6-50 MG TAB PO PRN (05:46)
[2023-01-31] MEDS: Levothyroxine Sodium 50 MCG TAB PO SCH (05:46)
[2023-01-31] MEDS ORDERED: Gabapentin 300 MG CAP PO SCH (09:00)
[2023-01-31] MEDS ORDERED: Heparin 5,000 UNITS/ML VIAL SC SCH (09:00)
[2023-01-31] MEDS: Potassium Chloride 20 MEQ TAB PO SCH (09:07)
[2023-01-31] MEDS: Polyethylene Glycol 3350 17 GM Packet PO SCH (09:08)
[2023-01-31] MEDS: Budesonide 0.5 MG/2 ML NEB NEB SCH ×2 (09:09→21:24)
[2023-01-31] MEDS: Gabapentin 300 MG CAP PO SCH ×3 (09:09→21:26)
[2023-01-31] MEDS: Heparin 5,000 UNITS/ML VIAL SC SCH ×2 (09:10→21:27)
[2023-01-31] MEDS: HYDROcodone/Acetaminophen 5/325 mg Tablet PO PRN ×2 (09:16→21:57)
[2023-01-31] MEDS: Clotrimazole 1% Cream 15 GM TUBE TOP SCH ×2 (09:23→22:53)
[2023-01-31] MEDS: Atorvastatin Calcium 40 MG TAB PO SCH ×2 (21:25→22:04)
[2023-01-31] MEDS: Amitriptyline HCl 25 MG TAB PO SCH (21:26)
[2023-02-01] MEDS: Meropenem 1 GM in Sodium Chloride 0.9% 100 ML IVPB SCH ×3 (01:56→17:45)
[2023-02-01] MEDS: Acetaminophen 325 MG TAB PO PRN ×2 (05:09→15:54)
[2023-02-01] MEDS: Levothyroxine Sodium 50 MCG TAB PO SCH (05:09)
[2023-02-01] MEDS: Budesonide 0.5 MG/2 ML NEB NEB SCH ×2 (09:41→21:05)
[2023-02-01] MEDS: Gabapentin 300 MG CAP PO SCH ×3 (09:44→21:46)
[2023-02-01] MEDS: Potassium Chloride 20 MEQ TAB PO SCH (09:44)
[2023-02-01] MEDS: Heparin 5,000 UNITS/ML VIAL SC SCH ×2 (09:44→21:46)
[2023-02-01] MEDS: Polyethylene Glycol 3350 17 GM Packet PO SCH (09:44)
[2023-02-01] MEDS: Clotrimazole 1% Cream 15 GM TUBE TOP SCH ×2 (09:49→21:45)
[2023-02-01] MEDS: HYDROcodone/Acetaminophen 5/325 mg Tablet PO PRN ×2 (10:34→12:13)
[2023-02-01] MEDS ORDERED: Bisacodyl 10 MG SUPP PR PRN (11:40)
[2023-02-01] MEDS: Senokot S 8.6-50 MG TAB PO PRN (12:13)
[2023-02-01 18:31] LABS: Bilirubin Small (Negative); Blood, Urine Negative (Negative); Clarity Clear (Clear); Glucose, Urine (Dipstick) Negative (Negative); Ketone, Urine 40 mg/dL (Negative); Leukocyte Negative (Negative); Nitrite Negative (Negative); Protein, Urine (Dipstick) 30 mg/dL (Neg-Trace); Urobilinogen 0.2 mg/dL (Less than 2)
[2023-02-01 18:42] LABS: Bacteria/HPF Rare-Few HPF (None Seen); Mucous/LPF Few LPF (<2+); RBC/HPF 0-3 HPF (0-3); Squamous Epithelial 0-3 HPF (0-3); WBC/HPF 0-3 HPF (0-3)
[2023-02-01] MEDS: Atorvastatin Calcium 40 MG TAB PO SCH (21:45)
[2023-02-01] MEDS: Amitriptyline HCl 25 MG TAB PO SCH (21:45)
[2023-02-02] MEDS: Meropenem 1 GM in Sodium Chloride 0.9% 100 ML IVPB SCH (01:45)
[2023-02-02 05:53] LABS: Anion Gap 11 mmol/L (10-20); BUN (Urea Nitrogen) 8 mg/dL (9.8-20.1); Calc. Creatinine Clearance 87 mL/min (70-130); Carbon Dioxide 33 mmol/L (23-31); Chloride 97 mmol/L (98-107); Estimated GFR 102; Glucose 72 mg/dL (83-110); Potassium 4.2 mmol/L (3.5-5.1); Sodium 137 mmol/L (136-145)
[2023-02-02 05:56] LABS: Hemoglobin 10.4 g/dL (12.0-16.0); Mean Corpuscular HGB CONC 33.9 g/dL (32.0-36.0); Mean Corpuscular Hemoglobin 28.7 pg (27.0-31.0); Mean Corpuscular Volume 84.7 fl (78.0-98.0); Mean Platelet Volume 7.1 fL (7.4-10.4); Platelet Count 378 10x3/uL (130-400); RBC Distribution Width 17.7 % (11.5-14.5); Red Blood Cell (RBC) Count 3.61 mill/uL (4.20-5.40); White Blood Cell (WBC) Count 30.5 10x3/uL (4.8-10.8)
[2023-02-02 05:57] LABS: Band 3 % (5-11); Lymphocytes 5 % (21-51); MDiff Complete? YES; Monocytes 4 % (0-10); Neutrophil 88 % (42-75); Platelet Morphology Comment Appears Adequate; RBC Morphology Normal; Toxic Granulation SLIGHT
[2023-02-02] MEDS: Levothyroxine Sodium 50 MCG TAB PO SCH (06:05)
[2023-02-02] MEDS: Budesonide 0.5 MG/2 ML NEB NEB SCH ×2 (08:17→21:56)
[2023-02-02] MEDS: Heparin 5,000 UNITS/ML VIAL SC SCH ×2 (08:30→21:57)
[2023-02-02] MEDS: Potassium Chloride 20 MEQ TAB PO SCH (08:30)
[2023-02-02] MEDS ORDERED: Sodium Chloride 0.9% 1,000 ML IV SCH (08:30)
[2023-02-02] MEDS: Gabapentin 300 MG CAP PO SCH ×3 (08:30→21:55)
[2023-02-02] MEDS: Acetaminophen 325 MG TAB PO PRN (08:31)
[2023-02-02] MEDS: Polyethylene Glycol 3350 17 GM Packet PO SCH (08:31)
[2023-02-02] MEDS: Clotrimazole 1% Cream 15 GM TUBE TOP SCH ×2 (08:34→21:57)
[2023-02-02] MEDS ORDERED: Vancomycin HCl 0.75 GM in Sodium Chloride 0.9% 250 ML 300 ML IVPB SCH (09:00)
[2023-02-02] MEDS ORDERED: Iopamidol 370 76% 100 ML VIAL ONE (09:18)
[2023-02-02] MEDS: Cefepime 2 GM in Sodium Chloride 0.9% 100 ML IVPB SCH ×2 (09:26→20:39)
[2023-02-02] MEDS ORDERED: Vancomycin HCl 1 GM in Sodium Chloride 0.9% 250 ML 250 ML IVPB SCH (10:00)
[2023-02-02] MEDS: metroNIDAZOLE 250 MG TAB PO SCH ×2 (12:51→21:54)
[2023-02-02] MEDS: HYDROcodone/Acetaminophen 5/325 mg Tablet PO PRN (12:51)
[2023-02-02] MEDS: Sodium Chloride 0.9% 1,000 ML IV SCH (19:30)
[2023-02-02] MEDS: Vancomycin HCl 750 MG in Sodium Chloride 0.9% 250 ML 250 ML IVPB SCH (21:48)
[2023-02-02] MEDS: Atorvastatin Calcium 40 MG TAB PO SCH (21:54)
[2023-02-02] MEDS: Amitriptyline HCl 25 MG TAB PO SCH (21:54)
[2023-02-03] MEDS: Levothyroxine Sodium 50 MCG TAB PO SCH (05:17)
[2023-02-03] MEDS: metroNIDAZOLE 250 MG TAB PO SCH ×3 (05:17→21:01)
[2023-02-03 05:23] LABS: #Basophils 0.1 thou/uL (0.0-0.2); #Eosinphils 0.6 thou/uL (0.0-0.7); #Lymphocytes 1.9 thou/uL (1.20-3.40); #Monocytes 0.8 thou/uL (0.11-0.59); #Neutrophils 17.1 thou/uL (1.40-6.50); %Basophils 0.7 % (0.0-1.0); %Eosinophils 3.1 % (0.0-10.0); %Lymphocytes 9.3 % (21.0-51.0); %Monocytes 3.7 % (0.0-10.0); %Neutrophils 83.2 % (42.0-75.0); Mean Corpuscular HGB CONC 34.3 g/dL (32.0-36.0); Mean Corpuscular Hemoglobin 29.6 pg (27.0-31.0); Mean Corpuscular Volume 86.3 fl (78.0-98.0); Mean Platelet Volume 6.6 fL (7.4-10.4); Platelet Count 352 10x3/uL (130-400); RBC Distribution Width 17.4 % (11.5-14.5); Red Blood Cell (RBC) Count 3.05 mill/uL (4.20-5.40); White Blood Cell (WBC) Count 20.5 10x3/uL (4.8-10.8)
[2023-02-03 05:42] LABS: Anion Gap 8 mmol/L (10-20)
[2023-02-03 05:47] LABS: BUN (Urea Nitrogen) 8 mg/dL (9.8-20.1); Calc. Creatinine Clearance 96 mL/min (70-130); Calcium 7.3 mg/dL (7.8-10.44); Carbon Dioxide 28 mmol/L (23-31); Chloride 104 mmol/L (98-107); Estimated GFR 104; Glucose 68 mg/dL (83-110); Sodium 136 mmol/L (136-145)
[2023-02-03] MEDS: Sodium Chloride 0.9% 1,000 ML IV SCH ×2 (05:53→14:11)
[2023-02-03] MEDS: HYDROcodone/Acetaminophen 5/325 mg Tablet PO PRN ×3 (05:58→18:26)
[2023-02-03] MEDS: Budesonide 0.5 MG/2 ML NEB NEB SCH ×2 (08:22→21:07)
[2023-02-03] MEDS: Heparin 5,000 UNITS/ML VIAL SC SCH ×2 (08:23→21:05)
[2023-02-03] MEDS: Polyethylene Glycol 3350 17 GM Packet PO SCH (08:23)
[2023-02-03] MEDS: Gabapentin 300 MG CAP PO SCH ×3 (08:23→21:00)
[2023-02-03] MEDS: Potassium Chloride 20 MEQ TAB PO SCH (08:23)
[2023-02-03] MEDS: Cefepime 2 GM in Sodium Chloride 0.9% 100 ML IVPB SCH ×2 (08:24→20:56)
[2023-02-03] MEDS: Clotrimazole 1% Cream 15 GM TUBE TOP SCH ×2 (08:30→21:02)
[2023-02-03] MEDS: Vancomycin HCl 750 MG in Sodium Chloride 0.9% 250 ML 250 ML IVPB SCH ×2 (09:25→22:02)
[2023-02-03] MEDS ORDERED: Preparation H Ointment 57 gram tube TOP PRN (16:22)
[2023-02-03] MEDS: Amitriptyline HCl 25 MG TAB PO SCH (21:00)
[2023-02-03] MEDS: Atorvastatin Calcium 40 MG TAB PO SCH (21:00)
[2023-02-03 21:26] LABS: Vancomycin, Trough 15.5 ug/mL
[2023-02-04] MEDS: Sodium Chloride 0.9% 1,000 ML IV SCH ×4 (04:37→19:59)
[2023-02-04] MEDS: metroNIDAZOLE 250 MG TAB PO SCH ×3 (04:43→20:11)
[2023-02-04] MEDS: Levothyroxine Sodium 50 MCG TAB PO SCH (04:43)
[2023-02-04] MEDS: HYDROcodone/Acetaminophen 5/325 mg Tablet PO PRN ×3 (04:57→20:01)
[2023-02-04] MEDS: Potassium Chloride 20 MEQ TAB PO SCH (07:52)
[2023-02-04] MEDS: Cefepime 2 GM in Sodium Chloride 0.9% 100 ML IVPB SCH ×2 (07:53→19:59)
[2023-02-04] MEDS: Gabapentin 300 MG CAP PO SCH ×3 (07:53→20:00)
[2023-02-04] MEDS: Budesonide 0.5 MG/2 ML NEB NEB SCH ×2 (07:54→19:59)
[2023-02-04] MEDS: Clotrimazole 1% Cream 15 GM TUBE TOP SCH ×2 (07:54→20:03)
[2023-02-04] MEDS: Polyethylene Glycol 3350 17 GM Packet PO SCH (07:55)
[2023-02-04] MEDS: Acetaminophen 325 MG TAB PO PRN (07:55)
[2023-02-04] MEDS: Vancomycin HCl 750 MG in Sodium Chloride 0.9% 250 ML 250 ML IVPB SCH ×2 (13:49→15:07)
[2023-02-04] MEDS: Atorvastatin Calcium 40 MG TAB PO SCH (20:01)
[2023-02-04] MEDS: Amitriptyline HCl 25 MG TAB PO SCH (20:01)
[2023-02-04] MEDS: Heparin 5,000 UNITS/ML VIAL SC SCH (20:07)
[2023-02-05] MEDS: Vancomycin HCl 750 MG in Sodium Chloride 0.9% 250 ML 250 ML IVPB SCH (01:39)
[2023-02-05] MEDS: metroNIDAZOLE 250 MG TAB PO SCH ×3 (04:26→22:20)
[2023-02-05] MEDS: HYDROcodone/Acetaminophen 5/325 mg Tablet PO PRN ×2 (04:26→20:29)
[2023-02-05] MEDS: Levothyroxine Sodium 50 MCG TAB PO SCH (04:26)
[2023-02-05] MEDS: Sodium Chloride 0.9% 1,000 ML IV SCH ×2 (04:30→14:43)
[2023-02-05] MEDS: Acetaminophen 325 MG TAB PO PRN (08:24)
[2023-02-05] MEDS: Gabapentin 300 MG CAP PO SCH ×3 (08:24→20:23)
[2023-02-05] MEDS: Budesonide 0.5 MG/2 ML NEB NEB SCH (08:24)
[2023-02-05] MEDS: Potassium Chloride 20 MEQ TAB PO SCH (08:24)
[2023-02-05] MEDS: Heparin 5,000 UNITS/ML VIAL SC SCH ×2 (08:25→20:23)
[2023-02-05] MEDS: Cefepime 2 GM in Sodium Chloride 0.9% 100 ML IVPB SCH ×2 (08:26→20:23)
[2023-02-05] MEDS: Clotrimazole 1% Cream 15 GM TUBE TOP SCH ×2 (08:27→20:39)
[2023-02-05] MEDS: Polyethylene Glycol 3350 17 GM Packet PO SCH (08:28)
[2023-02-05 08:29] LABS: #Basophils 0.1 thou/uL (0.0-0.2); #Eosinphils 0.7 thou/uL (0.0-0.7); #Lymphocytes 2.3 thou/uL (1.20-3.40); #Monocytes 0.5 thou/uL (0.11-0.59); #Neutrophils 6.1 thou/uL (1.40-6.50); %Lymphocytes 23.3 % (21.0-51.0); %Monocytes 5.4 % (0.0-10.0); %Neutrophils 63.3 % (42.0-75.0); Hemoglobin 10.8 g/dL (12.0-16.0); Mean Corpuscular HGB CONC 31.7 g/dL (32.0-36.0); Mean Corpuscular Hemoglobin 28.4 pg (27.0-31.0); Mean Corpuscular Volume 89.6 fl (78.0-98.0); Mean Platelet Volume 6.6 fL (7.4-10.4); Platelet Count 414 10x3/uL (130-400); RBC Distribution Width 18.1 % (11.5-14.5); White Blood Cell (WBC) Count 9.7 10x3/uL (4.8-10.8)
[2023-02-05 08:44] LABS: Anion Gap 11 mmol/L (10-20); BUN (Urea Nitrogen) 4 mg/dL (9.8-20.1); Calc. Creatinine Clearance 85 mL/min (70-130); Calcium 7.5 mg/dL (7.8-10.44); Carbon Dioxide 21 mmol/L (23-31); Chloride 110 mmol/L (98-107); Estimated GFR 102; Glucose 83 mg/dL (83-110); Potassium 3.6 mmol/L (3.5-5.1); Sodium 138 mmol/L (136-145)
[2023-02-05] MEDS: Lantiseptic Ointment 130 GM JAR TOP PRN (14:44)
[2023-02-05] MEDS ORDERED: Albuterol 200 PUFF (6.7GM INHALER) INH PRN (16:18)
[2023-02-05] MEDS: Amitriptyline HCl 25 MG TAB PO SCH (20:24)
[2023-02-05] MEDS: Mometasone Furoate 30 PUFF 220 MCG INH SCH (20:35)
[2023-02-06] MEDS: HYDROcodone/Acetaminophen 5/325 mg Tablet PO PRN ×4 (03:30→20:41)
[2023-02-06] MEDS: metroNIDAZOLE 250 MG TAB PO SCH ×3 (05:20→21:25)
[2023-02-06] MEDS: Levothyroxine Sodium 50 MCG TAB PO SCH (05:20)
[2023-02-06] MEDS: Heparin 5,000 UNITS/ML VIAL SC SCH ×2 (08:32→20:42)
[2023-02-06] MEDS: Cefepime 2 GM in Sodium Chloride 0.9% 100 ML IVPB SCH ×2 (08:42→20:43)
[2023-02-06] MEDS: Polyethylene Glycol 3350 17 GM Packet PO SCH (08:46)
[2023-02-06] MEDS: Potassium Chloride 20 MEQ TAB PO SCH (08:47)
[2023-02-06] MEDS: Gabapentin 300 MG CAP PO SCH ×3 (08:48→20:41)
[2023-02-06] MEDS: Calcium Carbonate 500 MG TAB PO SCH ×2 (08:48→20:41)
[2023-02-06] MEDS: Lantiseptic Ointment 130 GM JAR TOP PRN (08:52)
[2023-02-06] MEDS: Clotrimazole 1% Cream 15 GM TUBE TOP SCH (08:52)
[2023-02-06] MEDS ORDERED: NIRMATRELVIR 150 MG/RITONAVIR 100 MG PO SCH (09:00)
[2023-02-06] MEDS: Mometasone Furoate 30 PUFF 220 MCG INH SCH ×2 (09:05→20:40)
[2023-02-06] MEDS ORDERED: Calcium Carbonate 500 MG TAB PO SCH (10:00)
[2023-02-06] MEDS: Acetaminophen 325 MG TAB PO PRN (11:52)
[2023-02-06] MEDS: Amitriptyline HCl 25 MG TAB PO SCH (20:42)
[2023-02-06] MEDS: Nystatin Powder 15 GM BOT TOP SCH (20:42)
[2023-02-07] MEDS: HYDROcodone/Acetaminophen 5/325 mg Tablet PO PRN ×4 (05:58→23:35)
[2023-02-07] MEDS: Levothyroxine Sodium 50 MCG TAB PO SCH (05:58)
[2023-02-07] MEDS: metroNIDAZOLE 250 MG TAB PO SCH ×3 (05:58→22:48)
[2023-02-07] MEDS: Cefepime 2 GM in Sodium Chloride 0.9% 100 ML IVPB SCH ×2 (08:08→20:19)
[2023-02-07] MEDS: Acetaminophen 325 MG TAB PO PRN (08:12)
[2023-02-07] MEDS: Heparin 5,000 UNITS/ML VIAL SC SCH ×2 (08:13→20:22)
[2023-02-07] MEDS: Polyethylene Glycol 3350 17 GM Packet PO SCH (08:13)
[2023-02-07] MEDS: Potassium Chloride 20 MEQ TAB PO SCH (08:13)
[2023-02-07] MEDS: Gabapentin 300 MG CAP PO SCH ×3 (08:14→20:22)
[2023-02-07] MEDS: Mometasone Furoate 30 PUFF 220 MCG INH SCH ×2 (08:14→22:47)
[2023-02-07] MEDS: Calcium Carbonate 500 MG TAB PO SCH ×2 (08:14→20:22)
[2023-02-07] MEDS: Lantiseptic Ointment 130 GM JAR TOP PRN (08:14)
[2023-02-07] MEDS: Nystatin Powder 15 GM BOT TOP SCH ×2 (08:15→20:38)
[2023-02-07] MEDS: Amitriptyline HCl 25 MG TAB PO SCH (20:21)
[2023-02-08 05:58] LABS: Anion Gap 10 mmol/L (10-20); BUN (Urea Nitrogen) 6 mg/dL (9.8-20.1); Calc. Creatinine Clearance 81 mL/min (70-130); Calcium 8.3 mg/dL (7.8-10.44); Carbon Dioxide 32 mmol/L (23-31); Chloride 103 mmol/L (98-107); Estimated GFR 100; Glucose 101 mg/dL (83-110); Potassium 4.2 mmol/L (3.5-5.1)
[2023-02-08 06:00] LABS: Band 3 % (5-11); Eosinophils 9 % (0-10); Lymphocytes 20 % (21-51); MDiff Complete? YES; Mean Corpuscular HGB CONC 34.7 g/dL (32.0-36.0); Mean Corpuscular Hemoglobin 29.7 pg (27.0-31.0); Mean Corpuscular Volume 85.5 fl (78.0-98.0); Mean Platelet Volume 6.6 fL (7.4-10.4); Monocytes 6 % (0-10); Neutrophil 62 % (42-75); Platelet Count 426 10x3/uL (130-400); RBC Distribution Width 17.5 % (11.5-14.5); Red Blood Cell (RBC) Count 3.37 mill/uL (4.20-5.40); White Blood Cell (WBC) Count 6.9 10x3/uL (4.8-10.8)
[2023-02-08 06:08] LABS: Sodium 141 mmol/L (136-145)
[2023-02-08] MEDS: metroNIDAZOLE 250 MG TAB PO SCH ×3 (06:45→21:39)
[2023-02-08] MEDS: Levothyroxine Sodium 50 MCG TAB PO SCH (06:45)
[2023-02-08] MEDS: Polyethylene Glycol 3350 17 GM Packet PO SCH (08:13)
[2023-02-08] MEDS: Lidocaine 5% Patch TD SCH (08:13)
[2023-02-08] MEDS: HYDROcodone/Acetaminophen 5/325 mg Tablet PO PRN ×3 (08:13→20:35)
[2023-02-08] MEDS: Calcium Carbonate 500 MG TAB PO SCH ×2 (08:14→21:45)
[2023-02-08] MEDS: Cefepime 2 GM in Sodium Chloride 0.9% 100 ML IVPB SCH ×2 (08:15→20:32)
[2023-02-08] MEDS: Gabapentin 300 MG CAP PO SCH ×3 (08:15→20:34)
[2023-02-08] MEDS: Potassium Chloride 20 MEQ TAB PO SCH (08:15)
[2023-02-08] MEDS: Heparin 5,000 UNITS/ML VIAL SC SCH ×2 (08:15→20:35)
[2023-02-08] MEDS: Mometasone Furoate 30 PUFF 220 MCG INH SCH ×2 (08:16→21:38)
[2023-02-08] MEDS: Nystatin Powder 15 GM BOT TOP SCH ×2 (08:17→21:58)
[2023-02-08] MEDS: Amitriptyline HCl 25 MG TAB PO SCH (20:30)
[2023-02-08] MEDS: Transdermal Patch Removal TOP SCH (21:58)
[2023-02-09] MEDS: metroNIDAZOLE 250 MG TAB PO SCH ×2 (06:31→15:05)
[2023-02-09] MEDS: Levothyroxine Sodium 50 MCG TAB PO SCH (06:31)
[2023-02-09] MEDS: HYDROcodone/Acetaminophen 5/325 mg Tablet PO PRN ×3 (08:38→21:09)
[2023-02-09] MEDS: Polyethylene Glycol 3350 17 GM Packet PO SCH (08:38)
[2023-02-09] MEDS: Calcium Carbonate 500 MG TAB PO SCH ×2 (08:38→21:09)
[2023-02-09] MEDS: Gabapentin 300 MG CAP PO SCH ×3 (08:39→21:10)
[2023-02-09] MEDS: Heparin 5,000 UNITS/ML VIAL SC SCH ×2 (08:39→21:08)
[2023-02-09] MEDS: Potassium Chloride 20 MEQ TAB PO SCH (08:40)
[2023-02-09] MEDS: Lidocaine 5% Patch TD SCH (08:40)
[2023-02-09] MEDS: Cefepime 2 GM in Sodium Chloride 0.9% 100 ML IVPB SCH (08:40)
[2023-02-09] MEDS: Mometasone Furoate 30 PUFF 220 MCG INH SCH ×2 (08:41→21:11)
[2023-02-09] MEDS: Nystatin Powder 15 GM BOT TOP SCH ×2 (08:42→21:10)
[2023-02-09] MEDS: Amitriptyline HCl 25 MG TAB PO SCH (21:09)
[2023-02-09] MEDS: Transdermal Patch Removal TOP SCH (21:11)
[2023-02-10] MEDS: HYDROcodone/Acetaminophen 5/325 mg Tablet PO PRN ×3 (05:42→20:44)
[2023-02-10] MEDS: Levothyroxine Sodium 50 MCG TAB PO SCH (05:42)
[2023-02-10] MEDS: Potassium Chloride 20 MEQ TAB PO SCH (07:58)
[2023-02-10] MEDS: Calcium Carbonate 500 MG TAB PO SCH ×2 (07:59→20:50)
[2023-02-10] MEDS: Gabapentin 300 MG CAP PO SCH ×3 (07:59→20:50)
[2023-02-10] MEDS: Heparin 5,000 UNITS/ML VIAL SC SCH ×2 (08:00→20:50)
[2023-02-10] MEDS: Mometasone Furoate 30 PUFF 220 MCG INH SCH ×2 (08:00→20:45)
[2023-02-10] MEDS: Polyethylene Glycol 3350 17 GM Packet PO SCH (08:03)
[2023-02-10] MEDS: Lantiseptic Ointment 130 GM JAR TOP PRN (08:03)
[2023-02-10] MEDS: Nystatin Powder 15 GM BOT TOP SCH ×2 (08:04→20:53)
[2023-02-10] MEDS ORDERED: Lidocaine 4% Patch TD SCH (10:00)
[2023-02-10] MEDS: Lidocaine 4% Patch TD SCH (10:04)
[2023-02-10] MEDS: Lidocaine 5% Patch TD SCH (10:42)
[2023-02-10] MEDS: Amitriptyline HCl 25 MG TAB PO SCH (20:49)
[2023-02-10] MEDS: Transdermal Patch Removal TOP SCH (20:56)
[2023-02-11] MEDS: Levothyroxine Sodium 50 MCG TAB PO SCH (05:28)
[2023-02-11] MEDS: HYDROcodone/Acetaminophen 5/325 mg Tablet PO PRN ×2 (07:13→13:08)
[2023-02-11] MEDS: Potassium Chloride 20 MEQ TAB PO SCH (08:32)
[2023-02-11] MEDS: Gabapentin 300 MG CAP PO SCH ×3 (08:33→20:18)
[2023-02-11] MEDS: Polyethylene Glycol 3350 17 GM Packet PO SCH (08:34)
[2023-02-11] MEDS: Calcium Carbonate 500 MG TAB PO SCH ×2 (08:34→20:20)
[2023-02-11] MEDS: Lidocaine 4% Patch TD SCH (08:34)
[2023-02-11] MEDS: Heparin 5,000 UNITS/ML VIAL SC SCH ×2 (08:35→20:17)
[2023-02-11] MEDS: Nystatin Powder 15 GM BOT TOP SCH ×2 (08:35→20:21)
[2023-02-11] MEDS: Mometasone Furoate 30 PUFF 220 MCG INH SCH ×2 (08:36→20:16)
[2023-02-11] MEDS: Ketorolac Tromethamine 30 MG/ML VIAL IVP PRN (18:30)
[2023-02-11] MEDS: Amitriptyline HCl 25 MG TAB PO SCH (20:19)
[2023-02-11] MEDS: Transdermal Patch Removal TOP SCH (20:22)
[2023-02-12] MEDS: HYDROcodone/Acetaminophen 5/325 mg Tablet PO PRN ×3 (01:12→15:20)
[2023-02-12] MEDS: Levothyroxine Sodium 50 MCG TAB PO SCH (05:42)
[2023-02-12] MEDS: Potassium Chloride 20 MEQ TAB PO SCH (08:01)
[2023-02-12] MEDS: Gabapentin 300 MG CAP PO SCH ×3 (08:04→20:43)
[2023-02-12] MEDS: Calcium Carbonate 500 MG TAB PO SCH ×2 (08:05→20:45)
[2023-02-12] MEDS: Heparin 5,000 UNITS/ML VIAL SC SCH ×2 (08:05→20:41)
[2023-02-12] MEDS: Nystatin Powder 15 GM BOT TOP SCH ×2 (08:08→20:45)
[2023-02-12] MEDS: Mometasone Furoate 30 PUFF 220 MCG INH SCH (08:08)
[2023-02-12] MEDS: Polyethylene Glycol 3350 17 GM Packet PO SCH (08:09)
[2023-02-12] MEDS: Lidocaine 4% Patch TD SCH (08:09)
[2023-02-12] MEDS: Ketorolac Tromethamine 30 MG/ML VIAL IVP PRN (20:42)
[2023-02-12] MEDS: Amitriptyline HCl 25 MG TAB PO SCH (20:43)
[2023-02-12] MEDS: Transdermal Patch Removal TOP SCH (20:45)
[2023-02-12] MEDS: Budesonide 0.5 MG/2 ML NEB NEB SCH (20:46)
[2023-02-13] MEDS: HYDROcodone/Acetaminophen 5/325 mg Tablet PO PRN ×3 (05:49→20:45)
[2023-02-13] MEDS: Levothyroxine Sodium 50 MCG TAB PO SCH (05:50)
[2023-02-13] MEDS: Gabapentin 300 MG CAP PO SCH ×3 (08:57→20:48)
[2023-02-13] MEDS: Megestrol Acetate 400 MG/10 ML UDCUP PO SCH (08:57)
[2023-02-13] MEDS: Polyethylene Glycol 3350 17 GM Packet PO SCH (08:57)
[2023-02-13] MEDS: Calcium Carbonate 500 MG TAB PO SCH ×2 (08:58→20:45)
[2023-02-13] MEDS: Potassium Chloride 20 MEQ TAB PO SCH (08:58)
[2023-02-13] MEDS: Heparin 5,000 UNITS/ML VIAL SC SCH ×2 (08:58→20:50)
[2023-02-13] MEDS: Budesonide 0.5 MG/2 ML NEB NEB SCH ×2 (09:07→20:45)
[2023-02-13] MEDS: Nystatin Powder 15 GM BOT TOP SCH ×2 (09:08→20:50)
[2023-02-13] MEDS: Lidocaine 4% Patch TD SCH (10:31)
[2023-02-13] MEDS: Clotrimazole 1% Cream 15 GM TUBE TOP SCH ×2 (15:41→15:42)
[2023-02-13] MEDS ORDERED: Ketorolac Tromethamine 30 MG/ML VIAL IM PRN (18:25)
[2023-02-13] MEDS: Amitriptyline HCl 25 MG TAB PO SCH (20:47)
[2023-02-13] MEDS: Transdermal Patch Removal TOP SCH (20:51)
[2023-02-14] MEDS: HYDROcodone/Acetaminophen 5/325 mg Tablet PO PRN ×2 (03:30→18:02)
[2023-02-14] MEDS: Levothyroxine Sodium 50 MCG TAB PO SCH (05:13)
[2023-02-14] MEDS: Polyethylene Glycol 3350 17 GM Packet PO SCH (08:24)
[2023-02-14] MEDS: Budesonide 0.5 MG/2 ML NEB NEB SCH ×2 (08:24→21:04)
[2023-02-14] MEDS: Gabapentin 300 MG CAP PO SCH ×3 (08:27→21:04)
[2023-02-14] MEDS: Heparin 5,000 UNITS/ML VIAL SC SCH ×2 (08:27→21:06)
[2023-02-14] MEDS: Megestrol Acetate 400 MG/10 ML UDCUP PO SCH (08:27)
[2023-02-14] MEDS: Calcium Carbonate 500 MG TAB PO SCH ×2 (08:27→21:05)
[2023-02-14] MEDS: Potassium Chloride 20 MEQ TAB PO SCH (08:30)
[2023-02-14] MEDS: Nystatin Powder 15 GM BOT TOP SCH ×2 (08:32→21:07)
[2023-02-14] MEDS: Acetaminophen 325 MG TAB PO PRN (21:04)
[2023-02-14] MEDS: Amitriptyline HCl 25 MG TAB PO SCH (21:05)
[2023-02-14] MEDS: Transdermal Patch Removal TOP SCH (21:06)
[2023-02-15] MEDS: HYDROcodone/Acetaminophen 5/325 mg Tablet PO PRN ×4 (00:25→19:31)
[2023-02-15] MEDS: Levothyroxine Sodium 50 MCG TAB PO SCH (05:29)
[2023-02-15] MEDS: Lidocaine 4% Patch TD SCH (08:10)
[2023-02-15] MEDS: Megestrol Acetate 400 MG/10 ML UDCUP PO SCH (08:10)
[2023-02-15] MEDS: Gabapentin 300 MG CAP PO SCH ×3 (08:11→21:12)
[2023-02-15] MEDS: Budesonide 0.5 MG/2 ML NEB NEB SCH ×2 (08:12→21:14)
[2023-02-15] MEDS: Calcium Carbonate 500 MG TAB PO SCH ×2 (08:12→21:12)
[2023-02-15] MEDS: Potassium Chloride 20 MEQ TAB PO SCH (08:12)
[2023-02-15] MEDS: Heparin 5,000 UNITS/ML VIAL SC SCH ×2 (08:12→21:15)
[2023-02-15] MEDS: Nystatin Powder 15 GM BOT TOP SCH ×2 (08:12→21:50)
[2023-02-15] MEDS: Polyethylene Glycol 3350 17 GM Packet PO SCH (08:13)
[2023-02-15] MEDS: Amitriptyline HCl 25 MG TAB PO SCH (21:12)
[2023-02-15] MEDS: Atorvastatin Calcium 40 MG TAB PO SCH (21:12)
[2023-02-15] MEDS: Transdermal Patch Removal TOP SCH (22:20)
[2023-02-16] MEDS: Levothyroxine Sodium 50 MCG TAB PO SCH (06:24)
[2023-02-16] MEDS: HYDROcodone/Acetaminophen 5/325 mg Tablet PO PRN ×2 (06:26→12:09)
[2023-02-16] MEDS: Lidocaine 4% Patch TD SCH ×2 (09:12→09:16)
[2023-02-16] MEDS: Calcium Carbonate 500 MG TAB PO SCH ×2 (09:14→20:40)
[2023-02-16] MEDS: Budesonide 0.5 MG/2 ML NEB NEB SCH ×2 (09:14→20:44)
[2023-02-16] MEDS: Megestrol Acetate 400 MG/10 ML UDCUP PO SCH (09:14)
[2023-02-16] MEDS: Potassium Chloride 20 MEQ TAB PO SCH (09:14)
[2023-02-16] MEDS: Gabapentin 300 MG CAP PO SCH ×3 (09:15→20:43)
[2023-02-16] MEDS: Nystatin Powder 15 GM BOT TOP SCH ×2 (09:16→20:45)
[2023-02-16] MEDS: Polyethylene Glycol 3350 17 GM Packet PO SCH (09:16)
[2023-02-16] MEDS: Heparin 5,000 UNITS/ML VIAL SC SCH ×2 (09:16→20:44)
[2023-02-16] MEDS: Amitriptyline HCl 25 MG TAB PO SCH (20:42)
[2023-02-16] MEDS: Atorvastatin Calcium 40 MG TAB PO SCH (20:42)
[2023-02-16] MEDS: Transdermal Patch Removal TOP SCH (20:46)
[2023-02-17] MEDS: Levothyroxine Sodium 50 MCG TAB PO SCH (05:16)
[2023-02-17] MEDS: HYDROcodone/Acetaminophen 5/325 mg Tablet PO PRN (05:18)
[2023-02-17] MEDS: Polyethylene Glycol 3350 17 GM Packet PO SCH (08:39)
[2023-02-17] MEDS: Gabapentin 300 MG CAP PO SCH ×3 (08:39→20:46)
[2023-02-17] MEDS: Megestrol Acetate 400 MG/10 ML UDCUP PO SCH (08:39)
[2023-02-17] MEDS: Potassium Chloride 20 MEQ TAB PO SCH (08:40)
[2023-02-17] MEDS: Calcium Carbonate 500 MG TAB PO SCH ×2 (08:40→20:47)
[2023-02-17] MEDS: Heparin 5,000 UNITS/ML VIAL SC SCH ×2 (08:40→20:47)
[2023-02-17] MEDS: Lidocaine 4% Patch TD SCH (08:41)
[2023-02-17] MEDS: Lantiseptic Ointment 130 GM JAR TOP PRN ×2 (08:41→20:48)
[2023-02-17] MEDS: Budesonide 0.5 MG/2 ML NEB NEB SCH ×2 (08:43→20:46)
[2023-02-17] MEDS: Nystatin Powder 15 GM BOT TOP SCH ×2 (09:20→20:49)
[2023-02-17] MEDS: Atorvastatin Calcium 40 MG TAB PO SCH (20:47)
[2023-02-17] MEDS: Amitriptyline HCl 25 MG TAB PO SCH (20:47)
[2023-02-17] MEDS: Transdermal Patch Removal TOP SCH (20:49)
[2023-02-18] MEDS: Levothyroxine Sodium 50 MCG TAB PO SCH (05:26)
[2023-02-18] MEDS: Megestrol Acetate 400 MG/10 ML UDCUP PO SCH ×2 (08:10→21:11)
[2023-02-18] MEDS: Potassium Chloride 20 MEQ TAB PO SCH (08:10)
[2023-02-18] MEDS: Calcium Carbonate 500 MG TAB PO SCH ×2 (08:10→21:11)
[2023-02-18] MEDS: Heparin 5,000 UNITS/ML VIAL SC SCH ×2 (08:10→21:12)
[2023-02-18] MEDS: Polyethylene Glycol 3350 17 GM Packet PO SCH (08:10)
[2023-02-18] MEDS: Gabapentin 300 MG CAP PO SCH ×3 (08:11→21:11)
[2023-02-18] MEDS: Lidocaine 4% Patch TD SCH (08:11)
[2023-02-18] MEDS: Budesonide 0.5 MG/2 ML NEB NEB SCH ×2 (08:11→21:10)
[2023-02-18] MEDS: Nystatin Powder 15 GM BOT TOP SCH ×2 (08:14→21:13)
[2023-02-18] MEDS: Amitriptyline HCl 25 MG TAB PO SCH (21:10)
[2023-02-18] MEDS: Acetaminophen 325 MG TAB PO PRN (21:11)
[2023-02-18] MEDS: Atorvastatin Calcium 40 MG TAB PO SCH (21:11)
[2023-02-18] MEDS: Lantiseptic Ointment 130 GM JAR TOP PRN (21:13)
[2023-02-18] MEDS: Transdermal Patch Removal TOP SCH (21:17)
[2023-02-19] MEDS: Levothyroxine Sodium 50 MCG TAB PO SCH (05:26)
[2023-02-19] MEDS: Lidocaine 4% Patch TD SCH (08:41)
[2023-02-19] MEDS: Potassium Chloride 20 MEQ TAB PO SCH (08:41)
[2023-02-19] MEDS: Megestrol Acetate 400 MG/10 ML UDCUP PO SCH ×3 (08:41→20:58)
[2023-02-19] MEDS: Gabapentin 300 MG CAP PO SCH ×3 (08:42→20:44)
[2023-02-19] MEDS: Calcium Carbonate 500 MG TAB PO SCH ×2 (08:42→20:43)
[2023-02-19] MEDS: Nystatin Powder 15 GM BOT TOP SCH ×2 (08:43→20:56)
[2023-02-19] MEDS: Lantiseptic Ointment 130 GM JAR TOP PRN (08:43)
[2023-02-19] MEDS: Budesonide 0.5 MG/2 ML NEB NEB SCH ×2 (08:44→20:44)
[2023-02-19] MEDS: Heparin 5,000 UNITS/ML VIAL SC SCH ×2 (08:44→20:45)
[2023-02-19] MEDS: Polyethylene Glycol 3350 17 GM Packet PO SCH (08:45)
[2023-02-19] MEDS: HYDROcodone/Acetaminophen 5/325 mg Tablet PO PRN (19:28)
[2023-02-19] MEDS: Amitriptyline HCl 25 MG TAB PO SCH (20:43)
[2023-02-19] MEDS: Atorvastatin Calcium 40 MG TAB PO SCH (20:43)
[2023-02-19] MEDS: Transdermal Patch Removal TOP SCH (20:56)
[2023-02-20] MEDS: Levothyroxine Sodium 50 MCG TAB PO SCH (05:28)
[2023-02-20] MEDS: Budesonide 0.5 MG/2 ML NEB NEB SCH ×2 (08:11→20:05)
[2023-02-20] MEDS: Heparin 5,000 UNITS/ML VIAL SC SCH ×2 (08:11→20:02)
[2023-02-20] MEDS: HYDROcodone/Acetaminophen 5/325 mg Tablet PO PRN ×2 (08:12→12:50)
[2023-02-20] MEDS: Lidocaine 4% Patch TD SCH (08:12)
[2023-02-20] MEDS: Calcium Carbonate 500 MG TAB PO SCH ×2 (08:13→20:04)
[2023-02-20] MEDS: Gabapentin 300 MG CAP PO SCH ×3 (08:13→20:05)
[2023-02-20] MEDS: Potassium Chloride 20 MEQ TAB PO SCH (08:13)
[2023-02-20] MEDS: Lantiseptic Ointment 130 GM JAR TOP PRN (08:14)
[2023-02-20] MEDS: Nystatin Powder 15 GM BOT TOP SCH ×2 (08:14→20:07)
[2023-02-20] MEDS: Polyethylene Glycol 3350 17 GM Packet PO SCH (08:15)
[2023-02-20] MEDS: Megestrol Acetate 400 MG/10 ML UDCUP PO SCH (08:15)
[2023-02-20 09:32] VITALS: BMI 15.4
[2023-02-20] MEDS ORDERED: Loperamide HCl 2 MG CAP PO SCH (10:00)
[2023-02-20] MEDS ORDERED: Loperamide HCl 2 MG CAP PO PRN (11:00)
[2023-02-20] MEDS: Amitriptyline HCl 25 MG TAB PO SCH (20:04)
[2023-02-20] MEDS: Atorvastatin Calcium 40 MG TAB PO SCH (20:04)
[2023-02-20] MEDS: Mirtazapine 15 MG TAB PO SCH (20:05)
[2023-02-20] MEDS: Transdermal Patch Removal TOP SCH (20:06)
[2023-02-21] MEDS: Levothyroxine Sodium 50 MCG TAB PO SCH (05:44)
[2023-02-21] MEDS: Budesonide 0.5 MG/2 ML NEB NEB SCH (08:13)
[2023-02-21] MEDS: Heparin 5,000 UNITS/ML VIAL SC SCH ×2 (08:13→20:42)
[2023-02-21] MEDS: Calcium Carbonate 500 MG TAB PO SCH ×2 (08:14→20:36)
[2023-02-21] MEDS: Potassium Chloride 20 MEQ TAB PO SCH (08:14)
[2023-02-21] MEDS: Gabapentin 300 MG CAP PO SCH ×3 (08:14→20:37)
[2023-02-21] MEDS: Nystatin Powder 15 GM BOT TOP SCH ×2 (08:15→20:41)
[2023-02-21] MEDS: Lidocaine 4% Patch TD SCH (08:15)
[2023-02-21] MEDS: Polyethylene Glycol 3350 17 GM Packet PO SCH (08:15)
[2023-02-21] MEDS: Lantiseptic Ointment 130 GM JAR TOP PRN (08:15)
[2023-02-21] MEDS: HYDROcodone/Acetaminophen 5/325 mg Tablet PO PRN ×3 (08:17→22:19)
[2023-02-21] MEDS ORDERED: Budesonide 0.5 MG/2 ML NEB NEB PRN (13:42)
[2023-02-21] MEDS: Mirtazapine 15 MG TAB PO SCH (20:36)
[2023-02-21] MEDS: Atorvastatin Calcium 40 MG TAB PO SCH (20:36)
[2023-02-21] MEDS: Amitriptyline HCl 25 MG TAB PO SCH (20:36)
[2023-02-21] MEDS: Transdermal Patch Removal TOP SCH (20:41)
[2023-02-22] MEDS: Levothyroxine Sodium 50 MCG TAB PO SCH (05:33)
[2023-02-22 08:43] LABS: Anion Gap 14 mmol/L (10-20); BUN (Urea Nitrogen) 12 mg/dL (9.8-20.1); Calc. Creatinine Clearance 57 mL/min (70-130); Calcium 8.7 mg/dL (7.8-10.44); Carbon Dioxide 25 mmol/L (23-31); Chloride 102 mmol/L (98-107); Estimated GFR 96; Glucose 91 mg/dL (83-110); Sodium 137 mmol/L (136-145)
[2023-02-22] MEDS: Calcium Carbonate 500 MG TAB PO SCH ×2 (09:14→20:01)
[2023-02-22] MEDS: Gabapentin 300 MG CAP PO SCH ×3 (09:14→20:04)
[2023-02-22] MEDS: HYDROcodone/Acetaminophen 5/325 mg Tablet PO PRN ×2 (09:14→20:03)
[2023-02-22] MEDS: Lidocaine 4% Patch TD SCH (09:15)
[2023-02-22] MEDS: Nystatin Powder 15 GM BOT TOP SCH ×2 (09:16→20:01)
[2023-02-22] MEDS: Heparin 5,000 UNITS/ML VIAL SC SCH ×2 (09:16→20:05)
[2023-02-22] MEDS: Polyethylene Glycol 3350 17 GM Packet PO SCH (09:16)
[2023-02-22 09:35] LABS: #Basophils 0.1 thou/uL (0.0-0.2); #Eosinphils 0.2 thou/uL (0.0-0.7); #Lymphocytes 3.1 thou/uL (1.20-3.40); #Monocytes 0.5 thou/uL (0.11-0.59); #Neutrophils 4.7 thou/uL (1.40-6.50); %Basophils 1.3 % (0.0-1.0); %Eosinophils 2.8 % (0.0-10.0); %Lymphocytes 36.3 % (21.0-51.0); %Monocytes 5.3 % (0.0-10.0); %Neutrophils 54.2 % (42.0-75.0); Anisocytosis SLIGHT = 6-15 cells (100X) (0-5/hpf); Hemoglobin 12.2 g/dL (12.0-16.0); Hypochromia SLIGHT = 6-15 cells (100X) (0-5/hpf); MDiff Complete? YES; Mean Corpuscular HGB CONC 32.1 g/dL (32.0-36.0); Mean Corpuscular Hemoglobin 30.5 pg (27.0-31.0); Mean Corpuscular Volume 94.9 fl (78.0-98.0); Mean Platelet Volume 8.2 fL (7.4-10.4); Platelet Count 260 10x3/uL (130-400); Platelet Morphology Comment Appears Adequate; RBC Distribution Width 18.9 % (11.5-14.5); Red Blood Cell (RBC) Count 4.02 mill/uL (4.20-5.40); White Blood Cell (WBC) Count 8.6 10x3/uL (4.8-10.8)
[2023-02-22] MEDS: Lantiseptic Ointment 130 GM JAR TOP PRN (20:01)
[2023-02-22] MEDS: Amitriptyline HCl 25 MG TAB PO SCH (20:01)
[2023-02-22] MEDS: Atorvastatin Calcium 40 MG TAB PO SCH (20:02)
[2023-02-22] MEDS: Mirtazapine 15 MG TAB PO SCH (20:02)
[2023-02-22] MEDS: Transdermal Patch Removal TOP SCH (20:17)
[2023-02-22] MEDS ORDERED: Polyethylene Glycol 3350 17 GM Packet PO SCH (22:15)
[2023-02-23] MEDS: Levothyroxine Sodium 50 MCG TAB PO SCH (05:51)
[2023-02-23] MEDS: Gabapentin 300 MG CAP PO SCH ×3 (08:56→20:01)
[2023-02-23] MEDS: Calcium Carbonate 500 MG TAB PO SCH ×2 (08:56→20:01)
[2023-02-23] MEDS: Heparin 5,000 UNITS/ML VIAL SC SCH ×2 (08:57→20:07)
[2023-02-23] MEDS: Lidocaine 4% Patch TD SCH (08:58)
[2023-02-23] MEDS: Polyethylene Glycol 3350 17 GM Packet PO SCH (08:59)
[2023-02-23] MEDS: Nystatin Powder 15 GM BOT TOP SCH ×2 (08:59→20:06)
[2023-02-23] MEDS: HYDROcodone/Acetaminophen 5/325 mg Tablet PO PRN (14:13)
[2023-02-23] MEDS: Mirtazapine 15 MG TAB PO SCH (20:00)
[2023-02-23] MEDS: Atorvastatin Calcium 40 MG TAB PO SCH (20:01)
[2023-02-23] MEDS: Amitriptyline HCl 25 MG TAB PO SCH (20:01)
[2023-02-23] MEDS: Transdermal Patch Removal TOP SCH (21:30)
[2023-02-24] MEDS: Acetaminophen 325 MG TAB PO PRN (02:19)
[2023-02-24] MEDS: HYDROcodone/Acetaminophen 5/325 mg Tablet PO PRN ×2 (03:03→14:04)
[2023-02-24] MEDS: Levothyroxine Sodium 50 MCG TAB PO SCH (05:23)
[2023-02-24] MEDS: Senokot S 8.6-50 MG TAB PO PRN (05:23)
[2023-02-24 07:10] VITALS: BP 113/76; TEMP 98.7
[2023-02-24] MEDS: Gabapentin 300 MG CAP PO SCH ×2 (08:00→14:04)
[2023-02-24] MEDS: Nystatin Powder 15 GM BOT TOP SCH (08:00)
[2023-02-24] MEDS: Heparin 5,000 UNITS/ML VIAL SC SCH (08:00)
[2023-02-24] MEDS: Calcium Carbonate 500 MG TAB PO SCH (08:00)
[2023-02-24] MEDS: Lidocaine 4% Patch TD SCH (08:01)
[2023-02-24] MEDS: Polyethylene Glycol 3350 17 GM Packet PO SCH (08:01)
== END 2023-02-24 15:00 | disposition home or self-care (01) | DRG 193 ==
LOC: MADMS 23:06
PROVIDERS: ADMIT Family Medicine; ATTEND Family Medicine
DX: J15.9 Unspecified bacterial pneumonia (principal); A41.9 Sepsis, unspecified organism; J96.21 Acute and chronic respiratory failure with hypoxia; J44.0 Chronic obstructive pulmonary disease with (acute) lower respiratory infection; R64 Cachexia; Z68.1 Body mass index [BMI] 19.9 or less, adult; E46 Unspecified protein-calorie malnutrition; M10.9 Gout, unspecified; R53.1 Weakness; G89.29 Other chronic pain; E03.9 Hypothyroidism, unspecified; F32.A Depression, unspecified; F41.9 Anxiety disorder, unspecified; I10 Essential (primary) hypertension; E78.2 Mixed hyperlipidemia; Z20.822 Contact with and (suspected) exposure to COVID-19; F17.210 Nicotine dependence, cigarettes, uncomplicated; K52.9 Noninfective gastroenteritis and colitis, unspecified; Z88.0 Allergy status to penicillin; Z88.2 Allergy status to sulfonamides; Z88.8 Allergy status to other drugs, medicaments and biological substances; Z79.51 Long term (current) use of inhaled steroids; Z79.899 Other long term (current) drug therapy; Z99.81 Dependence on supplemental oxygen; I25.2 Old myocardial infarction; Z90.49 Acquired absence of other specified parts of digestive tract; Z90.710 Acquired absence of both cervix and uterus; Z98.890 Other specified postprocedural states
CPT/HCPCS: 36415; 36416; 71045; 71250; 74177; 80048; 80202; 81001; 84443; 85025; 87040; 87081; 87086; 87811; J0692; J1644; J1885; J2185; J3370; J3490; J7050; J7626; Q9967; U0002; U0003; U0005